=== PATIENT | female | born 1940 | race Caucasian/White ===

== ENCOUNTER 2019-08-17 06:45 | Observation (INO) | payer MEDICARE ==
[~2019-08-17] VITALS: Ht 162.6 cm; Wt 65.0 kg
[~2019-08-17 06:45] MED LIST: LEVO25TA4 PO; MONT10TA21 PO; OLME40TA8 PO
[2019-08-17 12:30] VITALS: BP 146/60
[2019-08-17 12:50] LABS: BASOPHILS % (AUTO) 0.9 % (0.0-5.0); EOSINOPHILS % (AUTO) 2.9 % (0.0-8.0); HEMATOCRIT 39.3 % (36-48); LYMPHOCYTES % (AUTO) 27.2 % (21.0-51.0); MEAN CORPUSCULAR HEMOGLOBIN 31.9 pg (27.0-33.0); MEAN CORPUSCULAR HGB CONC 32.9 g/dL (32.0-36.0); MEAN CORPUSCULAR VOLUME 96.9 fL (79-99); MONOCYTES % (AUTO) 7.4 % (3.0-13.0); NEUTROPHILS % (AUTO) 61.6 % (40.0-77.0); PLATELET COUNT (AUTO) 246 K/uL (130-400); RED BLOOD CELL COUNT(AUTO) 4.06 MIL/uL (4.00-5.50); RED CELL DISTRIBUTION WIDTH 14.4 % (11.0-15.5); WHITE BLOOD COUNT (AUTO) 7.6 K/uL (4.8-10.8)
[2019-08-17 13:10] LABS: CREATININE 0.8 mg/dL (0.5-1.5); POTASSIUM 3.9 mmol/L (3.5-5.1)
[2019-08-17] MEDS ORDERED: IBUP-1673 PO (15:37)
[2019-08-17] MEDS ORDERED: AMLO10TA4 PO (15:37)
[2019-08-17] MEDS ORDERED: LACT10SO PO (15:37)
[2019-08-17] MEDS ORDERED: VIT1CAPS47 PO (15:37)
[2019-08-17] MEDS ORDERED: PROVENTIL IH (15:37)
[2019-08-17] MEDS ORDERED: GABA600T10 PO (15:37)
[2019-08-17] MEDS ORDERED: ESCI10TA54 PO (15:37)
[2019-08-17] MEDS ORDERED: HYDROCODONE/ACET PO (15:37)
[2019-08-20] VITALS (27 sets, daily range): BP systolic 95–137; BP diastolic 40–90
[2019-08-20] MEDS: CEFAZOLIN SODIUM 1 GM VIAL IVP SCH ×2 (06:00→07:40)
[2019-08-20] MEDS ORDERED: LACTATED RINGERS 1000ML 1,000 ML IV ONE (06:11)
[2019-08-20] MEDS ORDERED: BUPIVACAINE/EPI/PF 0.25% 30ML VIAL IJ ONE (06:47)
[2019-08-20] MEDS ORDERED: BACITRACIN 50,000 UNIT VIAL ONE (06:49)
[2019-08-20] MEDS ORDERED: THROMBIN-JMI 5000 UNIT/VIAL TP ONE (06:49)
[2019-08-20] MEDS ORDERED: DURAMORPH PF1 MG/ML 10ML AMP IV ONE (06:50)
[2019-08-20] MEDS ORDERED: PROPOFOL 10 MG/ML 20ML VIAL IV ONE (07:12)
[2019-08-20] MEDS ORDERED: DEXAMETHASONE SOD PHOSPHATE 10MG/ML 1ML VIAL ONE (07:12)
[2019-08-20] MEDS ORDERED: LIDOCAINE PF 2% 5ML ABBOJECT ONE (07:12)
[2019-08-20] MEDS ORDERED: GLYCOPYRROLATE 1 MG/5 ML SYRINGE ONE (07:12)
[2019-08-20] MEDS ORDERED: ROCURONIUM 10MG/1ML SYR 10 MG/ML ML ONE (07:13)
[2019-08-20] MEDS ORDERED: NEOSTIGMINE 5MG/5ML SYR IV ONE (07:13)
[2019-08-20] MEDS ORDERED: FENTANYL CITRATE PF 50 MCG/1 ML 2ML VIAL ONE ×2 (07:13→08:35)
[2019-08-20] MEDS ORDERED: MIDAZOLAM HCL 1 MG/ML 2ML VIAL ONE (07:13)
[2019-08-20] MEDS ORDERED: ARTIFICIAL TEARS 3.5 GM OINTMENT ONE (07:14)
[2019-08-20] MEDS ORDERED: ONDANSETRON HCL 4 MG/2 ML VIAL ONE (10:25)
[2019-08-20] MEDS ORDERED: ESMOLOL HCL 10 MG/ML 10 ML VIAL ONE (10:51)
[2019-08-20] MEDS: LACTATED RINGERS 1000ML 1,000 ML IV SCH (10:56)
[2019-08-20] MEDS ORDERED: IBUPROFEN 200 MG TAB PO PRN (11:00)
[2019-08-20] MEDS ORDERED: MORPHINE SULFATE 2 MG/ML 1ML SYG IVP PRN (11:00)
[2019-08-20] MEDS ORDERED: PROVENTIL IH PRN (11:00)
[2019-08-20] MEDS ORDERED: PROMETHAZINE HCL 25 MG/ML 1ML AMPULE IM PRN (11:00)
[2019-08-20] MEDS: DEXAMETHASONE SOD PHOSPHATE 4 MG/ML 1ML VIAL IVP SCH ×2 (11:00→18:37)
[2019-08-20] MEDS ORDERED: SODIUM CHLORIDE 0.9% 10 ML VIAL IVP PRN (11:00)
[2019-08-20] MEDS ORDERED: NON-FORMULARY MEDICATION 1 EACH (Lactulose 30 ML) PO PRN (11:00)
[2019-08-20] MEDS ORDERED: MEPERIDINE-PF 25 MG/ML SYG ONE (11:11)
[2019-08-20] MEDS ORDERED: MORPHINE SULFATE 4 MG/1ML SYG ONE (11:30)
[2019-08-20] MEDS ORDERED: PHARMACY COMMUNICATION MISC SCH (14:00)
--- NOTE | 2019-08-20 14:45 | NUR ---
1424 had pt sign [facility] Letter.Faxed to [phone] and placed in chart under consent tab
[2019-08-20] MEDS: HYDROCODONE/ACETAMINOPHEN 5/325 MG TAB PO PRN ×2 (15:39→21:09)
[2019-08-20] MEDS ORDERED: CEFAZOLIN SODIUM 1 GM VIAL IVP SCH (16:00)
[2019-08-20] MEDS ORDERED: AMLODIPINE BESYLATE 5 MG TAB PO SCH (21:00)
[2019-08-20] MEDS: MULTIVITAMIN WITH MINERALS TABLET PO SCH (21:02)
[2019-08-20] MEDS: GABAPENTIN 300 MG CAPSULE PO SCH (21:02)
[2019-08-21] MEDS: DEXAMETHASONE SOD PHOSPHATE 4 MG/ML 1ML VIAL IVP SCH ×2 (00:13→05:28)
[2019-08-21] MEDS: LACTATED RINGERS 1000ML 1,000 ML IV SCH ×2 (00:16→05:29)
[2019-08-21 04:00] VITALS: BP 116/53
[2019-08-21] MEDS: HYDROCODONE/ACETAMINOPHEN 5/325 MG TAB PO PRN ×2 (05:29→11:27)
[2019-08-21] MEDS ORDERED: LEVOTHYROXINE 25 MCG TABLET PO SCH (06:30)
[2019-08-21 08:00] VITALS: BP 104/53
--- NOTE | 2019-08-21 08:00 | NUR ---
CM NOTES PT HERE FOR A SCHEDULE OPP; NO TRIGGERS TO CM, NO CONCNERNS VOICE, DETAILED CM ASSESSMENT DEFERRED AT THIS TIME Addendum: 08/21/19 at 1821 by VIVIAN SANCHEZ RN CM Amended: Links added.
[2019-08-21] MEDS ORDERED: LOSARTAN 100 MG TABLET PO SCH (09:00)
[2019-08-21] MEDS ORDERED: CITALOPRAM 20 MG TABLET PO SCH (09:00)
[2019-08-21] MEDS ORDERED: MONTELUKAST SODIUM 10 MG TAB PO SCH (09:00)
[2019-08-21] MEDS: MULTIVITAMIN WITH MINERALS TABLET PO SCH (09:53)
[2019-08-21] MEDS: GABAPENTIN 300 MG CAPSULE PO SCH (09:56)
--- NOTE | 2019-08-21 11:00 | NUR ---
pt and daughter stated understanding of all dc instructions in reagards to laminectomy after care, wound care, pain management, activity and signs and symptoms or concerns to report to md; dressing changed to lower back, and gabriel drain removed; pt has a well approx. inc. line with vance in place, no redness or drainage noted, no edema; pt josh. dressing change well and daughter at bedside was taught how to change dressings at home. pt plans to eat lunch then daughter will drive her home. haley told them to call when they are ready.
== END 2019-08-21 12:08 | disposition home or self-care (01) ==
LOC: EDSTATUS 12:00 → DAHIP 08-20 05:58 → 4BH 08-20 10:45
PROVIDERS: ADMIT Neurological Surgery; ATTEND Neurological Surgery
DX: M48.07 Spinal stenosis, lumbosacral region (principal); I10 Essential (primary) hypertension; E03.9 Hypothyroidism, unspecified; J45.909 Unspecified asthma, uncomplicated; Z90.710 Acquired absence of both cervix and uterus; Z90.49 Acquired absence of other specified parts of digestive tract; Z98.49 Cataract extraction status, unspecified eye; Z79.899 Other long term (current) drug therapy
CPT/HCPCS: 36415; 63047; 63048 ×2; 72020; 80048; 85025; 96374; 96375; 96376; A4215; A4221; A4222; A4223; A4344; A4510; A4600; A4649 ×4; A4663; G0378 ×26; J0690 ×2; J1100 ×4; J2001; J2175; J2250; J2270; J2274; J2405; J2704; J2710; J3010 ×2; J3490 ×4; J7120 ×3

== ENCOUNTER → 2021-03-17 | Outpatient (CLI) | payer MEDICARE ==
[~2021-03-17] MED LIST changes: +AMLO10TA4 PO; +ESCI-8 PO; +GABA600T10 PO; +HYDROCODONE/ACET PO; +IBUP-1673 PO; +LACT10SO5 PO; +PROVENTIL IH; +VIT1CAPS47 PO
== END | disposition home or self-care (01) ==
LOC: SHCH 09:01
PROVIDERS: ATTEND Internal Medicine Cardiovascular Disease
DX: R01.1 Cardiac murmur, unspecified (principal)
CPT/HCPCS: 93306; 93356

== ENCOUNTER 2024-08-24 15:52 | Inpatient (IN) | payer MEDICARE ==
[~2024-08-24] VITALS: Ht 160 cm; Wt 58.1 kg
[~2024-08-24 15:52] MED LIST changes: +GABA-1405 PO; -GABA600T10 PO; +LACT-441 PO; -LACT10SO5 PO; +MONT-47 PO; -MONT10TA21 PO; +OLME40TA70 PO; -OLME40TA8 PO
[2024-08-24] MEDS: morPHINE 2 MG SYG IM ONE (18:38)
--- NOTE | 2024-08-24 18:43 | HMCIMG ---
HIP UNILAT 4VW LEFT REASON: Pain. COMPARISON: None TECHNIQUE: 3 images of left hip were obtained. FINDINGS: Bilateral hip joint space narrowing is seen. Fecal material is seen in the colon. There is no acute displaced fracture or dislocation. IMPRESSION: Findings as described above.
--- NOTE | 2024-08-24 18:44 | HMCIMG ---
SHOULDER COMP 2+VWS LT HISTORY: Pain COMPARISON: None TECHNIQUE: 2 images of left shoulder were obtained. FINDINGS: Glenohumeral joint space narrowing and acromioclavicular joint space narrowing are seen. There is no acute displaced fracture or dislocation. Degenerative changes are seen. IMPRESSION: 1. Findings as described above.
--- NOTE | 2024-08-24 18:46 | HMCIMG ---
ELBOW COMP 3+VWS LT HISTORY: Pain COMPARISON: None TECHNIQUE: 3 images of left elbow were obtained. FINDINGS: There is fracture displacement involving the olecranon process of the proximal ulna. Soft tissue swelling is seen. The study is limited due to poor positioning. Subtle dislocation cannot be completely excluded. Degenerative changes are seen. IMPRESSION: 1. Findings as described above.
--- NOTE | 2024-08-24 18:49 | HMCIMG ---
FOREARM 2VWS LT HISTORY: Pain COMPARISON: None TECHNIQUE: 2 images of left forearm were obtained. FINDINGS: Avulsion fracture is seen of the olecranon process with displacement. Soft tissue swelling is seen. No definite dislocation is seen. Degenerative changes are seen. IMPRESSION: 1. Findings as described above.
--- NOTE | 2024-08-24 18:56 | HMCIMG ---
CT HEAD/BRAIN W/O CONTRAST HISTORY: Status post fall COMPARISON: None TECHNIQUE: Multiple sequential axial images of the head were obtained from the base of the skull through vertex. Patient was not given contrast through intravenous route. FINDINGS: The ventricles and extraventricular CSF spaces are dilated consistent with cerebral atrophy. Nonspecific white matter changes seen. There is no midline shift, mass effect or herniation. No acute intracranial bleed is seen. There is pansinusitis. IMPRESSION: 1. No acute intracranial bleed is seen. 2. Atrophy with white matter changes. Pansinusitis. CT was performed with one or more following dose reduction techniques: automated exposure control, adjustment of the mA and kv according to patient's size, or use of a iterative reconstruction technique.
[2024-08-24] MEDS: morPHINE 2 MG SYG IVP ONE (19:40)
[2024-08-24 19:42] LABS: BASOPHILS # (AUTO) 0.07 K/uL (0.00-0.20); BASOPHILS % (AUTO) 0.5 % (0.0-5.0); EOSINOPHILS # (AUTO) 0.05 K/uL (0.00-0.70); EOSINOPHILS % (AUTO) 0.3 % (0.0-8.0); HEMATOCRIT 40.7 % (36-48); IMMATURE GRANULOCYTE ABSOLUTE 0.08 K/uL (0-1); LYMPHOCYTES # (AUTO) 1.6 K/uL (1.0-4.8); LYMPHOCYTES % (AUTO) 10.5 % (21.0-51.0); MEAN CORPUSCULAR HEMOGLOBIN 30.7 pg (27.0-33.0); MEAN CORPUSCULAR HGB CONC 32.7 g/dL (32.0-36.0); MONOCYTES # (AUTO) 0.7 K/uL (0.1-1.0); MONOCYTES % (AUTO) 4.8 % (3.0-13.0); NEUTROPHILS # (AUTO) 12.3 K/uL (1.8-7.7); NEUTROPHILS % (AUTO) 83.4 % (40.0-77.0); PLATELET COUNT (AUTO) 237 K/uL (130-400); RED BLOOD CELL COUNT(AUTO) 4.33 MIL/uL (4.00-5.50); RED CELL DISTRIBUTION WIDTH 13.8 % (11.0-15.5); WHITE BLOOD COUNT (AUTO) 14.8 K/uL (4.8-10.8)
[2024-08-24 19:59] LABS: CREATININE 1.1 mg/dL (0.5-1.0); POTASSIUM 3.4 mmol/L (3.5-5.1)
--- NOTE | 2024-08-24 20:03 | ERN ---
General Chief Complaint: Mechanical Fall Stated Complaint: LEFT SHOULDER, ELBOW, HIP, S/P FALL Time Seen by MD: 16:55 Time Seen by Midlevel: 16:55 Source: patient, family History of Present Illness Initial Comments 83 y/o female who presents to the ED with daughter after a fall. She reports she slipped and fell hitting her left side, and reports to hit the back of her head. Denies any LOC, denies any vomiting, abnormal behavioral, and denies taking blood thinners. The patient complaining of left shoulder, elbow, left hip pain. PMHx asthma, DM, hypercholesterolemia Allergies: Coded Allergies: iodine (Unverified Allergy, Unknown, 05/13/17) Home Meds Reported Medications [Hydrocodone/Acet] No Conflict Check, PO Q6HPRN PRN for PAIN 08/17/19 Ibuprofen (Motrin Ib) 200 Mg Tablet, 2 TAB PO Q6HPRN PRN for PAIN, TAB 08/17/19 [Proventil] No Conflict Check, 1 PUFF IH AD PRN for ASTHMA 08/17/19 Escitalopram Oxalate (Escitalopram Oxalate) 10 Mg Tablet, 10 MG PO AM, TAB 08/17/19 Vit C/E/Zn/Coppr/Lutein/Zeaxan (Preservision Areds 2 Softgel) 1 Each Capsule, 1 EACH PO BID, CAP 08/17/19 Gabapentin (Gabapentin) 600 Mg Tablet, 600 MG PO BID, TAB 08/17/19 Amlodipine Besylate (Norvasc) 10 Mg Tablet, 10 MG PO HS, TAB 08/17/19 Lactulose (Lactulose) 10 Gm/15 Ml Solution, 30 ML PO AD PRN for CONSTIPATION, ML 08/17/19 Montelukast Sodium (Singulair) 10 Mg Tablet, 10 MG PO DAILY, TAB 05/13/17 Levothyroxine Sodium (Synthroid) 25 Mcg Tablet, 25 MCG PO DAILY, TAB 05/13/17 Olmesartan Medoxomil (Benicar) 40 Mg Tablet, 40 MG PO DAILY, TAB 05/13/17 Past Medical History Past Medical History: Asthma, Diabetes-Type II, High Cholesterol, Heart Disease Past Surgical History: Hysterectomy, Cholecystectomy Surgical History Other: BACK, BLADDER LIFT ROS Dictation Constitutional: Negative for fever,chills, and weight loss Eyes: Negative for injury, pain,redness, and discharge ENT: Negative for injury,pain or swelling Head: Positive for hematoma Cardiovascular: Negative for chest pain, palpitations, and edema Respiratory: Negative for shortness of breath, cough, and wheezing, Abdomen/GI: Negative for abdominal pain, nausea, vomiting, diarrhea, and constipation Back: Negative for injury and pain : Negative for painful urination, bleeding or discharge MS/Extremity: Positive for left shoulder, left elbow, left hip pain Negative for injury and deformity Skin: Negative for rash, and discoloration Neuro: Negative for headache, weakness, numbness, tingling, and seizure Psych: Negative for suicide ideation, homicidal ideation, and hallucinations Physical Exam Physical Exam Dictation General: awake, alert, no acute distress Head/Face: Normocephalic, atraumatic Eyes: PERRL, EOMI, normal conjunctiva ENT: oral mucosa moist Neck: Normal range of motion Cardiovascular: RRR, normal S1/S2 Respiratory: CTAB, no respiratory distress, no rales or wheezes Skin: Warm, dry, normal turgor, no rash MS/Extremity: Pulses equal, no cyanosis, neurovascular intact, range of motion restricted by pain to the left elbow and shoulder, severe tenderness to the left elbow, hematoma noted to the left elbow Neuro: COAx4, GCS 15, no neurological deficits, cranial nerves 2-12 intact Psych: Normal behavior, mood, and affect normal Results Laboratory and Microbiology Lab and Micro Result Laboratory Tests Test 08/24/24 19:33 White Blood Count 14.8 K/uL (4.8-10.8) H Red Blood Count 4.33 MIL/uL (4.00-5.50) Hemoglobin 13.3 g/dL (12.0-16.0) Hematocrit 40.7 % (36-48) Mean Corpuscular Volume 94.0 fL (79-99) Mean Corpuscular Hemoglobin 30.7 pg (27.0-33.0) Mean Corpuscular Hemoglobin Concent 32.7 g/dL (32.0-36.0) Red Cell Distribution Width 13.8 % (11.0-15.5) Platelet Count 237 K/uL (130-400) Mean Platelet Volume 10.3 fL (7.5-10.5) Immature Granulocyte % (Auto) 0.5 % (0-1) Neutrophils (%) (Auto) 83.4 % (40.0-77.0) H Lymphocytes (%) (Auto) 10.5 % (21.0-51.0) L Monocytes (%) (Auto) 4.8 % (3.0-13.0) Eosinophils (%) (Auto) 0.3 % (0.0-8.0) Basophils (%) (Auto) 0.5 % (0.0-5.0) Neutrophils # (Auto) 12.3 K/uL (1.8-7.7) H Lymphocytes # (Auto) 1.6 K/uL (1.0-4.8) Monocytes # (Auto) 0.7 K/uL (0.1-1.0) Eosinophils # (Auto) 0.05 K/uL (0.00-0.70) Basophils # (Auto) 0.07 K/uL (0.00-0.20) Absolute Immature Granulocyte (auto 0.08 K/uL (0-1) Nucleated Red Blood Cells 0.0 % (0.0-0.19) Labs Reviewed?: Yes EKG/XRAY/US/CT/MRI X-RAY Comment REASON: Pain ORDERING PHYSICIAN: EDWIN COSME PROCEDURE: ELB3VW LT - ELBOW COMP 3+VWS LT ELBOW COMP 3+VWS LT HISTORY: Pain COMPARISON: None TECHNIQUE: 3 images of left elbow were obtained. FINDINGS: There is fracture displacement involving the olecranon process of the proximal ulna. Soft tissue swelling is seen. The study is limited due to poor positioning. Subtle dislocation cannot be completely excluded. Degenerative changes are seen. IMPRESSION: 1. Findings as described above. REASON: Pain ORDERING PHYSICIAN: EDWIN COSME PROCEDURE: FORARML - FOREARM 2VWS LT FOREARM 2VWS LT HISTORY: Pain COMPARISON: None TECHNIQUE: 2 images of left forearm were obtained. FINDINGS: Avulsion fracture is seen of the olecranon process with displacement. Soft tissue swelling is seen. No definite dislocation is seen. Degenerative changes are seen. IMPRESSION: 1. Findings as described above. REASON: Pain ORDERING PHYSICIAN: EDWIN COSME PROCEDURE: HIP U 4V L - HIP UNILAT 4VW LEFT HIP UNILAT 4VW LEFT REASON: Pain. COMPARISON: None TECHNIQUE: 3 images of left hip were obtained. FINDINGS: Bilateral hip joint space narrowing is seen. Fecal material is seen in the colon. There is no acute displaced fracture or dislocation. IMPRESSION: Findings as described above. REASON: Pain ORDERING PHYSICIAN: EDWIN COSME PROCEDURE: SHOL 2V LT - SHOULDER COMP 2+VWS LT SHOULDER COMP 2+VWS LT HISTORY: Pain COMPARISON: None TECHNIQUE: 2 images of left shoulder were obtained. FINDINGS: Glenohumeral joint space narrowing and acromioclavicular joint space narrowing are seen. There is no acute displaced fracture or dislocation. Degenerative changes are seen. IMPRESSION: 1. Findings as described above. CT Scan Comment REASON: Fall, head injury ORDERING PHYSICIAN: EDWIN COSME PROCEDURE: HEAD WO - CT HEAD/BRAIN W/O CONTRAST CT HEAD/BRAIN W/O CONTRAST HISTORY: Status post fall COMPARISON: None TECHNIQUE: Multiple sequential axial images of the head were obtained from the base of the skull through vertex. Patient was not given contrast through intravenous route. FINDINGS: The ventricles and extraventricular CSF spaces are dilated consistent with cerebral atrophy. Nonspecific white matter changes seen. There is no midline shift, mass effect or herniation. No acute intracranial bleed is seen. There is pansinusitis. IMPRESSION: 1. No acute intracranial bleed is seen. 2. Atrophy with white matter changes. Pansinusitis. CT was performed with one or more following dose reduction techniques: automated exposure control, adjustment of the mA and kv according to patient's size, or use of a iterative reconstruction technique. MDM MDM: Differential diagnosis: Fracture, dislocation, head injury, sprain, strain, contusion Rationale: 83 y/o female who presents to the ED with daughter after a fall. She reports she slipped and fell hitting her left side, and reports to hit the back of her head. Denies any LOC, denies any vomiting, abnormal behavioral, and denies taking blood thinners. The patient complaining of left shoulder, elbow, left hip pain. PMHx asthma, DM, hypercholesterolemia Left elbow x-rays indicate avulsion fracture involving the olecranon process with displacement of the proximal ulna, soft tissue swelling noted, degenerative changes noted. Pelvic x-rays indicate bilateral hip joint placed narrowing no acute displaced fractures or dislocations. Shoulder x-rays indicate narrowing of the acromioclavicular joint space, degenerative changes, no acute displaced fractures or dislocations. Head CT indicates no acute intracranial bleeds, atrophy with white matter changes. Morphine administered in the ED. Dr. Gu orthopedic consulted who recommended admission and keeping the patient NPO, initiate IV fluids and he will evaluate patient in the morning and scheduled for surgery. Patient and daughter were educated on findings, diagnosis, and decision for admission. Daughter verbalized understanding and agreed with admission. Previous outside records reviewed: Old ER visits. Risk of complication and/or morbidity or mortality of patient management: None Medications-Per medication reconciliation Need for hospitalization: Patient does meet criteria for hospitalization. Need for emergency major/minor surgery: No There are no social concerns with this patient. Prescription drug management Prescriptions will include symptomatic care Patient's prior external medical records from other ER visits were reviewed by me as indicated. Prior testing and results from previous visits were reviewed. Prior tests were taken into account with medical decision making and resource utilization, independent historian/historians were used to obtain complete medical history. I independently interpreted the test that were performed, results were reviewed by me and considered findings on radiology if ordered. Medical management and examination interpretation discussions were had by me with other qualified healthcare professionals as indicated for the patient's care. ED Course Orders Procedure Category Date Status Time Shoulder Comp 2+Vws Lt RAD 08/24/24 Resulted 16:56 Hip Unilat 4vw Left RAD 08/24/24 Resulted 16:56 Elbow Comp 3+Vws Lt RAD 08/24/24 Resulted 16:56 Forearm 2vws Lt RAD 08/24/24 Resulted 16:56 Ct Head/Brain W/O CT 08/24/24 Resulted Contrast 17:41 Morphine 2mg Syg PHA 08/24/24 Complete (Morphine 2mg Syg) 18:00 Cbc With Differential LAB 08/24/24 Complete 19:03 Basic Metabolic Panel LAB 08/24/24 In Process 19:03 Pt And Ptt LAB 08/24/24 In Process 19:03 Urinalysis LAB 08/24/24 Logged W/Microscopic 19:03 Morphine 2mg Syg PHA 08/24/24 Complete (Morphine 2mg Syg) 19:30 Current Medications Medications (Trade) Dose Ordered Sig/Yecenia Route PRN Reason Start Time Stop Time Status Last Admin Dose Admin Morphine Sulfate (morPHINE 2MG SYG) 2 mg ONCE ONCE IM 08/24/24 18:00 08/24/24 18:01 DC 08/24/24 18:38 Morphine Sulfate (morPHINE 2MG SYG) 2 mg ONCE ONCE IVP 08/24/24 19:30 08/24/24 19:31 DC 08/24/24 19:40 Vital Signs Date Time Temp Pulse Resp B/P (MAP) Pulse Ox O2 Delivery O2 Flow Rate FiO2 08/24/24 18:51 98.4 88 16 121/52 96 Room Air* 0 21 08/24/24 15:55 98.4 88 16 121/52 96 Room Air 0 Critical Care Note Critical Time: 30 minutes Comments Critical Care Procedure Note Authorized and Performed by: me Total critical care time: Approximately 36 minutes Due to a high probability of clinically significant, life threatening deterioration, the patient required my highest level of preparedness to intervene emergently and I personally spent this critical care time directly and personally managing the patient. This critical care time included obtaining a history; examining the patient; pulse oximetry; ordering and review of studies; arranging urgent treatment with development of a management plan; evaluation of patient's response to treatment; frequent reassessment; and, discussions with other providers. This critical care time was performed to assess and manage the high probability of imminent, life-threatening deterioration that could result in multi-organ failure. It was exclusive of separately billable procedures and treating other patients and teaching time. Please see MDM section and the rest of the note for further information on patient assessment and treatment. DX & DISP Disposition: Inpatient Decision to Admit Date: Aug 24, 2024 Decision to Admit Time: 18:57 Departure Impression: Primary Impression: Olecranon fracture Condition: Stable Referrals: CHRIST MIRZA MD (PCP) I participated in the following activities of this patient's care: For this patient encounter, I reviewed the PA or TRIAL MANAGER documentation, treatment plan, and medical decision making. I did not have [id number] time with this patient. I will sign as the reviewing DrAislinn And agree with the treatment plan and disposition. EDWIN COSME Aug 24, 2024 20:03
[2024-08-24 20:09] LABS: INR 1.03 (0.85-1.15); PROTHROMBIN TIME 11.1 SEC (9.6-11.6)
[2024-08-24 20:10] LABS: PARTIAL THROMBOPLASTIN TIME 25.4 SEC (26.3-35.5)
[2024-08-24] MEDS: 1/2 NS 1000ML 1,000 ML IV SCH (20:48)
--- NOTE | 2024-08-24 21:30 | NUR ---
COMPLETE LIST OF HOME MEDICATIONS WITH DOSAGES NOT AVAILABLE AT THIS TIME. DAUGHTER INSTRUCTED TO BRING COMEPLETED LIST TOMORROW.
--- NOTE | 2024-08-24 21:55 | HP ---
HISTORY AND PHYSICAL NOTE DATE OF CONSULTATION: 08/24/24 ALLERGIES: Coded Allergies: iodine (Unverified Allergy, Unknown, 05/13/17) HOME MEDS: Reported Medications [Hydrocodone/Acet] No Conflict Check, PO Q6HPRN PRN for PAIN 08/17/19 Ibuprofen (Motrin Ib) 200 Mg Tablet, 2 TAB PO Q6HPRN PRN for PAIN, TAB 08/17/19 [Proventil] No Conflict Check, 1 PUFF IH AD PRN for ASTHMA 08/17/19 Escitalopram Oxalate (Escitalopram Oxalate) 10 Mg Tablet, 10 MG PO AM, TAB 08/17/19 Vit C/E/Zn/Coppr/Lutein/Zeaxan (Preservision Areds 2 Softgel) 1 Each Capsule, 1 EACH PO BID, CAP 08/17/19 Gabapentin (Gabapentin) 600 Mg Tablet, 600 MG PO BID, TAB 08/17/19 Amlodipine Besylate (Norvasc) 10 Mg Tablet, 10 MG PO HS, TAB 08/17/19 Lactulose (Lactulose) 10 Gm/15 Ml Solution, 30 ML PO AD PRN for CONSTIPATION, ML 08/17/19 Montelukast Sodium (Singulair) 10 Mg Tablet, 10 MG PO DAILY, TAB 05/13/17 Levothyroxine Sodium (Synthroid) 25 Mcg Tablet, 25 MCG PO DAILY, TAB 05/13/17 Olmesartan Medoxomil (Benicar) 40 Mg Tablet, 40 MG PO DAILY, TAB 05/13/17 INPATIENT MEDS: Current Medications Medications Dose Ordered Sig/Yecenia Start Time Stop Time Status Last Admin Sodium Chloride 1,000 ml @ 100 mls/hr Q10H 08/24/24 20:30 09/23/24 20:29 08/24/24 20:48 VITAL SIGNS Vital Signs Date Time Temp Pulse Resp B/P (MAP) Pulse Ox O2 Delivery O2 Flow Rate FiO2 08/24/24 21:03 97.9 93 18 136/57 97 Room Air* 0 08/24/24 20:00 97.9 95 18 121/63 96 Room Air* 0 08/24/24 19:00 97.7 18 118/61 95 Room Air* 0 08/24/24 18:51 98.4 88 16 121/52 96 Room Air* 0 08/24/24 15:55 98.4 88 16 121/52 96 Room Air 0 PHYSICAL EXAM 83 y/o female who presents to the ED with daughter after a fall. She reports she slipped and fell hitting her left side, and reports to hit the back of her head. Denies any LOC, denies any vomiting, abnormal behavioral, and denies taking blood thinners. The patient complaining of left shoulder, elbow, left hip pain. PMHx asthma, DM, hypercholesterolemia Allergies: Coded Allergies: iodine (Unverified Allergy, Unknown, 05/13/17) Home Meds Reported Medications [Hydrocodone/Acet] No Conflict Check, PO Q6HPRN PRN for PAIN 08/17/19 Ibuprofen (Motrin Ib) 200 Mg Tablet, 2 TAB PO Q6HPRN PRN for PAIN, TAB 08/17/19 [Proventil] No Conflict Check, 1 PUFF IH AD PRN for ASTHMA 08/17/19 Escitalopram Oxalate (Escitalopram Oxalate) 10 Mg Tablet, 10 MG PO AM, TAB 08/17/19 Vit C/E/Zn/Coppr/Lutein/Zeaxan (Preservision Areds 2 Softgel) 1 Each Capsule, 1 EACH PO BID, CAP 08/17/19 Gabapentin (Gabapentin) 600 Mg Tablet, 600 MG PO BID, TAB 08/17/19 Amlodipine Besylate (Norvasc) 10 Mg Tablet, 10 MG PO HS, TAB 08/17/19 Lactulose (Lactulose) 10 Gm/15 Ml Solution, 30 ML PO AD PRN for CONSTIPATION, ML 08/17/19 Montelukast Sodium (Singulair) 10 Mg Tablet, 10 MG PO DAILY, TAB 05/13/17 Levothyroxine Sodium (Synthroid) 25 Mcg Tablet, 25 MCG PO DAILY, TAB 05/13/17 Olmesartan Medoxomil (Benicar) 40 Mg Tablet, 40 MG PO DAILY, TAB 05/13/17 Past History Past Medical History Past Medical History: Asthma, Diabetes-Type II, High Cholesterol, Heart Disease Past Surgical History: Hysterectomy, Cholecystectomy Surgical History Other: BACK, BLADDER LIFT Review of Systems ROS Dictation Constitutional: Negative for fever,chills, and weight loss Eyes: Negative for injury, pain,redness, and discharge ENT: Negative for injury,pain or swelling Head: Positive for hematoma Cardiovascular: Negative for chest pain, palpitations, and edema Respiratory: Negative for shortness of breath, cough, and wheezing, Abdomen/GI: Negative for abdominal pain, nausea, vomiting, diarrhea, and constipation Back: Negative for injury and pain : Negative for painful urination, bleeding or discharge MS/Extremity: Positive for left shoulder, left elbow, left hip pain Negative for injury and deformity Skin: Negative for rash, and discoloration Neuro: Negative for headache, weakness, numbness, tingling, and seizure Physical Exam Physical Exam Physical Exam Dictation General: awake, alert, no acute distress Head/Face: Normocephalic, atraumatic Eyes: PERRL, EOMI, normal conjunctiva ENT: oral mucosa moist Neck: Normal range of motion Cardiovascular: RRR, normal S1/S2 Respiratory: CTAB, no respiratory distress, no rales or wheezes Skin: Warm, dry, normal turgor, no rash MS/Extremity: Pulses equal, no cyanosis, neurovascular intact, range of motion restricted by pain to the left elbow and shoulder, severe tenderness to the left elbow, hematoma noted to the left elbow Neuro: COAx4, GCS 15, no neurological deficits, cranial nerves 2-12 intact Psych: Normal behavior, mood, and affect normal LABORATORY RESULTS Laboratory Tests 08/24/24 19:33: White Blood Count 14.8, Red Blood Count 4.33, Hemoglobin 13.3, Hematocrit 40.7, Mean Corpuscular Volume 94.0, Mean Corpuscular Hemoglobin 30.7, Mean Corpuscular Hemoglobin Concent 32.7, Red Cell Distribution Width 13.8, Platelet Count 237, Mean Platelet Volume 10.3, Immature Granulocyte % (Auto) 0.5, Neutrophils (%) ( Auto) 83.4, Lymphocytes (%) (Auto) 10.5, Monocytes (%) (Auto) 4.8, Eosinophils (%) (Auto) 0.3, Basophils (%) (Auto) 0.5, Neutrophils # (Auto) 12.3, Lymphocytes # (Auto) 1.6, Monocytes # (Auto) 0.7, Eosinophils # (Auto) 0.05, Basophils # (Auto) 0.07, Absolute Immature Granulocyte (auto 0.08, Nucleated Red Blood Cells 0.0, Prothrombin Time 11.1, Prothromb Time International Ratio 1.03, Activated Partial Thromboplast Time 25.4, Sodium Level 143, Potassium Level 3.4, Chloride Level 104, Carbon Dioxide Level 25, Blood Urea Nitrogen 17, Creatinine 1.1, Glomerular Filtration Rate Calc 49, Random Glucose 114, Total Calcium 9.8 PROBLEM LIST: (1) Olecranon fracture ICD Codes: S52.023A - Displaced fracture of olecranon process without intraarticular extension of unspecified ulna, initialencounter for closed fracture PLAN Resume home medication and consult orthopedics and symptomatic pain treatment CHRIST MIRZA MD Aug 24, 2024 21:55
[2024-08-24] MEDS: hydroMORPHone 0.5 MG SYG (0.5MG/0.5ML) IVP ONE (22:41)
[2024-08-25] VITALS (34 sets, daily range): BP systolic 128–198; BP diastolic 55–97; PULSE 79–117; RESP 15–34; TEMP 97.6–98.5; O2SAT 93–98
--- NOTE | 2024-08-25 00:57 | NUR ---
REPORT GIVEN TO NURSE PEREZ, ALL QUESTIONS ANSWERED AT THIS TIME. NURSE EXPECTING PT ARRIVAL TO THE UNIT.
[2024-08-25 05:28] LABS: BASOPHILS # (AUTO) 0.04 K/uL (0.00-0.20); BASOPHILS % (AUTO) 0.5 % (0.0-5.0); EOSINOPHILS # (AUTO) 0.19 K/uL (0.00-0.70); EOSINOPHILS % (AUTO) 2.2 % (0.0-8.0); HEMATOCRIT 35.9 % (36-48); IMMATURE GRANULOCYTE ABSOLUTE 0.03 K/uL (0-1); MEAN CORPUSCULAR HEMOGLOBIN 30.2 pg (27.0-33.0); MEAN CORPUSCULAR HGB CONC 32.3 g/dL (32.0-36.0); MEAN CORPUSCULAR VOLUME 93.5 fL (79-99); MONOCYTES # (AUTO) 0.6 K/uL (0.1-1.0); MONOCYTES % (AUTO) 7.2 % (3.0-13.0); NEUTROPHILS # (AUTO) 5.8 K/uL (1.8-7.7); NEUTROPHILS % (AUTO) 66.8 % (40.0-77.0); PLATELET COUNT (AUTO) 212 K/uL (130-400); RED BLOOD CELL COUNT(AUTO) 3.84 MIL/uL (4.00-5.50); WHITE BLOOD COUNT (AUTO) 8.7 K/uL (4.8-10.8)
[2024-08-25] MEDS: hydroMORPHone 0.5 MG SYG (0.5MG/0.5ML) IVP PRN (05:59)
[2024-08-25 06:02] LABS: ALBUMIN 3.3 g/dL (3.5-5.0); BILIRUBIN,TOTAL 1.1 mg/dL (0.2-1.0); CREATININE 0.8 mg/dL (0.5-1.0); POTASSIUM 3.4 mmol/L (3.5-5.1)
--- NOTE | 2024-08-25 10:57 | EKG ---
[facility] Test Date: 2024-08-25 Test Time: 10:35:06 Pat Name: ABIEL MARROQUIN Department: [facility] Room: 413 1 Gender: F Package Handler: [id number] : 1940 Requested By: SIRI GABRIEL Order Number: [id number] Reading MD: Moy Franco Measurements Intervals [place] Rate: 82 P: 55 SC: 162 QRS: 64 QRSD: 96 T: 88 QT: 408 QTc: 478 Interpretive Statements Sinus rhythm Nonspecific T abnormalities, lateral leads No previous ECG available for comparison Electronically Signed On 08-25-2024 18:11:26 STRATEGIC MANAGER by Moy Franco Please click the below link to view image of tracing.
[2024-08-25] MEDS: ceFAZolin SODIUM 2 GM VIAL ONE (11:05)
[2024-08-25] MEDS ORDERED: LIDOCAINE PF 100MG/5ML (2%) SYRINGE 5ML ONE (11:13)
[2024-08-25] MEDS ORDERED: ondanSETRON 4MG INJ ONE (11:13)
[2024-08-25] MEDS ORDERED: rocuRONium bROMide 10MG/1ML 5ML VL ONE (11:14)
[2024-08-25] MEDS ORDERED: GLYCOPYRROLATE 0.2 MG/ML 5 ML VIAL ONE (11:14)
[2024-08-25] MEDS ORDERED: SUCCINYLCHOLINE CHLORIDE 20 MG/ML 10 ML VIAL ONE (11:14)
[2024-08-25] MEDS ORDERED: FENTanyl CITRate PF 50 MCG/1 ML 2ML VIAL ONE ×2 (11:14→14:10)
[2024-08-25] MEDS ORDERED: NEOSTIGMINE METHYLSULFATE 1MG/ML IV ONE (11:14)
[2024-08-25] MEDS ORDERED: dexaMETHasone SOD PHOSPHATE 10MG/ML 1ML VIAL ONE (11:14)
[2024-08-25] MEDS ORDERED: proPOFol 10 MG/ML 20ML VIAL IV ONE (11:14)
--- NOTE | 2024-08-25 11:14 | PN ---
PROGRESS NOTE PROGRESS NOTE DATE OF PROGRESS NOTE: 08/25/24 SUBJECTIVE: No new complaints VITAL SIGNS Vital Signs Date Time Temp Pulse Resp B/P (MAP) Pulse Ox O2 Delivery O2 Flow Rate FiO2 08/25/24 08:13 98.4 102 16 139/55 93 Nasal Cannula 2.0 08/25/24 04:38 21 PHYSICAL EXAM: 83 y/o female who presents to the ED with daughter after a fall. She reports she slipped and fell hitting her left side, and reports to hit the back of her head. Denies any LOC, denies any vomiting, abnormal behavioral, and denies fallon ing blood thinners. The patient complaining of left shoulder, elbow, left hip pain. PMHx asthma, DM, hypercholesterolemia Allergies: Coded Allergies: iodine (Unverified Allergy, Unknown, 05/13/17) Home Meds Reported Medications [Hydrocodone/Acet] No Conflict Check, PO Q6HPRN PRN for PAIN 08/17/19 Ibuprofen (Motrin Ib) 200 Mg Tablet, 2 TAB PO Q6HPRN PRN for PAIN, TAB 08/17/19 [Proventil] No Conflict Check, 1 PUFF IH AD PRN for ASTHMA 08/17/19 Escitalopram Oxalate (Escitalopram Oxalate) 10 Mg Tablet, 10 MG PO AM, TAB 08/17/19 Vit C/E/Zn/Coppr/Lutein/Zeaxan (Preservision Areds 2 Softgel) 1 Each Capsule, 1 EACH PO BID, CAP 08/17/19 Gabapentin (Gabapentin) 600 Mg Tablet, 600 MG PO BID, TAB 08/17/19 Amlodipine Besylate (Norvasc) 10 Mg Tablet, 10 MG PO HS, TAB 08/17/19 Lactulose (Lactulose) 10 Gm/15 Ml Solution, 30 ML PO AD PRN for CONSTIPATION, ML 08/17/19 Montelukast Sodium (Singulair) 10 Mg Tablet, 10 MG PO DAILY, TAB 05/13/17 Levothyroxine Sodium (Synthroid) 25 Mcg Tablet, 25 MCG PO DAILY, TAB 05/13/17 Olmesartan Medoxomil (Benicar) 40 Mg Tablet, 40 MG PO DAILY, TAB 05/13/17 Past History Past Medical History Past Medical History: Asthma, Diabetes-Type II, High Cholesterol, Heart Disease Past Surgical History: Hysterectomy, Cholecystectomy Surgical History Other: BACK, BLADDER LIFT Review of Systems ROS Dictation Constitutional: Negative for fever,chills, and weight loss Eyes: Negative for injury, pain,redness, and discharge ENT: Negative for injury,pain or swelling Head: Positive for hematoma Cardiovascular: Negative for chest pain, palpitations, and edema Respiratory: Negative for shortness of breath, cough, and wheezing, Abdomen/GI: Negative for abdominal pain, nausea, vomiting, diarrhea, and constipation Back: Negative for injury and pain : Negative for painful urination, bleeding or discharge MS/Extremity: Positive for left shoulder, left elbow, left hip pain Negative for injury and deformity Skin: Negative for rash, and discoloration Neuro: Negative for headache, weakness, numbness, tingling, and seizure Physical Exam Physical Exam Physical Exam Dictation General: awake, alert, no acute distress Head/Face: Normocephalic, atraumatic Eyes: PERRL, EOMI, normal conjunctiva ENT: oral mucosa moist Neck: Normal range of motion Cardiovascular: RRR, normal S1/S2 Respiratory: CTAB, no respiratory distress, no rales or wheezes Skin: Warm, dry, normal turgor, no rash MS/Extremity: Pulses equal, no cyanosis, neurovascular intact, range of motion restricted by pain to the left elbow and shoulder, severe tenderness to the left elbow, hematoma noted to the left elbow Neuro: COAx4, GCS 15, no neurological deficits, cranial nerves 2-12 intact Psych: Normal behavior, mood, and affect normal LABORATORY: Laboratory Result(s) Test 08/24/24 19:33 08/25/24 04:51 08/25/24 10:53 White Blood Count 14.8 K/uL (4.8-10.8) 8.7 K/uL (4.8-10.8) Red Blood Count 4.33 MIL/uL (4.00-5.50) 3.84 MIL/uL (4.00-5.50) Hemoglobin 13.3 g/dL (12.0-16.0) 11.6 g/dL (12.0-16.0) Hematocrit 40.7 % (36-48) 35.9 % (36-48) Mean Corpuscular Volume 94.0 fL (79-99) 93.5 fL (79-99) Mean Corpuscular Hemoglobin 30.7 pg (27.0-33.0) 30.2 pg (27.0-33.0) Mean Corpuscular Hemoglobin Concent 32.7 g/dL (32.0-36.0) 32.3 g/dL (32.0-36.0) Red Cell Distribution Width 13.8 % (11.0-15.5) 14.0 % (11.0-15.5) Platelet Count 237 K/uL (130-400) 212 K/uL (130-400) Mean Platelet Volume 10.3 fL (7.5-10.5) 10.7 fL (7.5-10.5) Immature Granulocyte % (Auto) 0.5 % (0-1) 0.3 % (0-1) Neutrophils (%) (Auto) 83.4 % (40.0-77.0) 66.8 % (40.0-77.0) Lymphocytes (%) (Auto) 10.5 % (21.0-51.0) 23.0 % (21.0-51.0) Monocytes (%) (Auto) 4.8 % (3.0-13.0) 7.2 % (3.0-13.0) Eosinophils (%) (Auto) 0.3 % (0.0-8.0) 2.2 % (0.0-8.0) Basophils (%) (Auto) 0.5 % (0.0-5.0) 0.5 % (0.0-5.0) Neutrophils # (Auto) 12.3 K/uL (1.8-7.7) 5.8 K/uL (1.8-7.7) Lymphocytes # (Auto) 1.6 K/uL (1.0-4.8) 2.0 K/uL (1.0-4.8) Monocytes # (Auto) 0.7 K/uL (0.1-1.0) 0.6 K/uL (0.1-1.0) Eosinophils # (Auto) 0.05 K/uL (0.00-0.70) 0.19 K/uL (0.00-0.70) Basophils # (Auto) 0.07 K/uL (0.00-0.20) 0.04 K/uL (0.00-0.20) Absolute Immature Granulocyte (auto 0.08 K/uL (0-1) 0.03 K/uL (0-1) Nucleated Red Blood Cells 0.0 % (0.0-0.19) 0.0 % (0.0-0.19) Prothrombin Time 11.1 SEC (9.6-11.6) Prothromb Time International Ratio 1.03 (0.85-1.15) Activated Partial Thromboplast Time 25.4 SEC (26.3-35.5) Sodium Level 143 mmol/L (136-145) 139 mmol/L (136-145) Potassium Level 3.4 mmol/L (3.5-5.1) 3.4 mmol/L (3.5-5.1) Chloride Level 104 mmol/L (101-111) 105 mmol/L (101-111) Carbon Dioxide Level 25 mmol/L (21-32) 25 mmol/L (21-32) Blood Urea Nitrogen 17 mg/dL (7-18) 17 mg/dL (7-18) Creatinine 1.1 mg/dL (0.5-1.0) 0.8 mg/dL (0.5-1.0) Glomerular Filtration Rate Calc 49 mL/min (>90) 72 mL/min (>90) Random Glucose 114 mg/dL (70-105) 116 mg/dL (70-105) Total Calcium 9.8 mg/dL (8.5-10.1) 8.9 mg/dL (8.5-10.1) Total Bilirubin 1.1 mg/dL (0.2-1.0) Aspartate Amino Transf (AST/SGOT) 18 U/L (10-37) Alanine Aminotransferase (ALT/SGPT) 20 U/L (12-78) Alkaline Phosphatase 96 U/L (50-136) Total Protein 7.0 g/dL (6.0-8.3) Albumin 3.3 g/dL (3.5-5.0) Whole Blood Glucose 102 MG/DL (70-110) INPATIENT MEDS: Current Medications Medications Dose Ordered Sig/Yecenia Start Time Stop Time Status Last Admin Sodium Chloride 1,000 ml @ 100 mls/hr Q10H 08/24/24 20:30 09/23/24 20:29 08/24/24 20:48 Hydromorphone HCl 0.5 mg Q3H3 PRN 08/25/24 06:00 08/30/24 05:59 08/25/24 10:07 Cefazolin Sodium 2 gm ONCALL ONCE 08/25/24 13:00 08/25/24 13:01 PROBLEM LIST: (1) Olecranon fracture ICD Code: S52.023A - Displaced fracture of olecranon process without intraarticular extension of unspecified ulna, initialencounter for closed fracture PLAN: Resume home medication and consult orthopedics and symptomatic pain treatment Medically cleared for surgery no contraindications CHRIST MIRZA MD Aug 25, 2024 11:14
[2024-08-25] MEDS ORDERED: MIDAZOLAM HCL 1 MG/ML 2ML VIAL ONE (11:15)
[2024-08-25] MEDS ORDERED: ROPivacaine 0.5% 5MG/ML 30ML ONE (11:17)
[2024-08-25] MEDS ORDERED: ALBUMIN (HUMAN) 5% 250 ML IV ONE (11:19)
[2024-08-25] MEDS ORDERED: ceFAZolin SODIUM 1 GM VIAL ONE (12:59)
[2024-08-25] MEDS: ceFAZolin SODIUM 2 GM VIAL IVPB ONE (13:30)
--- NOTE | 2024-08-25 13:54 | CONS ---
CONSULT NOTE: REQUESTING PHYSICIAN: Dr. Foster REASON FOR CONSULT: Left elbow fracture HISTORY OF PRESENT ILLNESS: Mrs. Chung is an 83-year-old female patient in the sustained in a fall the day of admission and was brought to the emergency room because of left elbow and left shoulder pain. The patient denied loss of consciousness, nausea and vomit, abnormal behavior. She is not taking blood thinners The patient was evaluated in the emergency room and she was found to have a displaced olecranon fracture. The patient was admitted and we were consulted for treatment. PAST MEDICAL HISTORY: Asthma, diabetes type 2, hypercholesterolemia, heart disease, left shoulder arthritis PAST SURGICAL HISTORY: Cholecystectomy, hysterectomy, back surgery, bladder lift ALLERGIES: Iodine SOCIAL HISTORY: The patient is retired denies use of tobacco or alcohol FAMILY HISTORY: REVIEW OF SYSTEMS: Negative except as above PHYSICAL EXAMINATION: The patient is lying supine in bed, she is in moderate distress secondary to shoulder and elbow pain. Her mental status is alert and oriented. Her respiratory rate is normal and there is no labored respiratory effort. Examination of the left lower extremity reveals diffuse edema of the arm elbow and forearm. There is no obvious bruising. She is protecting her which is the in the the elbow and she is tender to palpation. Distal neurovascular exam is normal. RADIOLOGIC STUDIES: Left shoulder films revealed the presence of severe arthrosis of the glenohumeral joint with preserved acromial humeral space. Large osteophyte formation. Subchondral sclerosis. Left elbow films revealed the presence of a very displaced olecranon fracture. Diffuse osteopenia. ASSESSMENT: Closed fracture of the left olecranon, displaced. 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 PLAN: The patient will be taken to the operating room for open reduction internal fixation of the elbow fracture. Procedure explained to the patient and the daughter could understand, risks, benefits and possible complications and the consent form will be signed. DONTE MARRERO MD Aug 25, 2024 13:54
[2024-08-25] MEDS: ceFAZolin SODIUM 1 GM VIAL IRRIG ONE (13:56)
--- NOTE | 2024-08-25 15:42 | PN ---
I just completed an open reduction internal fixation of the patient's left elbow for treatment of the fracture. When I notified the daughters patient that the fracture has been repair she mentioned to me that the mother had been complaining of significant hip pain. She mentioned to me that they took x-rays in the emergency room but they told her they were negative for fractures. I have reviewed the x-rays a few moments ago and I notified her that in my opinion there is a Garden type three femoral neck fracture. I also mentioned that I am going to order a CT scan to confirm the grade of the displacement but that she will definitely need surgery which will be scheduled for this . The patient's daughter understands the plan and agrees. The patient will be notified tomorrow. Vitals/Labs Vital Signs Date Time Temp Pulse Resp B/P (MAP) Pulse Ox O2 Delivery O2 Flow Rate FiO2 08/25/24 12:55 98.4 83 16 128/58 98 Nasal Cannula 2.0 08/25/24 04:38 21 Laboratory Tests 08/24/24 19:33 08/25/24 04:51 Medications Current Medications Morphine Sulfate 2 mg ONCE ONCE IM Last administered on 08/24/24at 18:38; Start 08/24/24 at 18:00; Stop 08/24/24 at 18:01; Status DC Morphine Sulfate 2 mg ONCE ONCE IVP Last administered on 08/24/24at 19:40; Start 08/24/24 at 19:30; Stop 08/24/24 at 19:31; Status DC Sodium Chloride 1,000 ml @ 100 mls/hr Q10H IV Last administered on 08/24/24at 20:48; Start 08/24/24 at 20:30; Stop 09/23/24 at 20:29 Hydromorphone HCl 0.5 mg Q3H ONCE IVP Last administered on 08/24/24at 22:41; Start 08/24/24 at 20:30; Stop 08/24/24 at 20:31; Status DC Hydromorphone HCl 0.5 mg Q3H3 PRN IVP Last administered on 08/25/24at 10:07; Start 08/25/24 at 06:00; Stop 08/30/24 at 05:59 Cefazolin Sodium 2 gm ONCALL ONCE IVPB Last administered on 08/25/24at 13:30; Start 08/25/24 at 13:00; Stop 08/25/24 at 13:01; Status DC Cefazolin Sodium 2 gm STK-MED ONCE .ROUTE; Start 08/25/24 at 10:57; Stop 08/25/24 at 10:57; Status DC Lidocaine HCl 100 mg STK-MED ONCE .ROUTE; Start 08/25/24 at 11:13; Stop 08/25/24 at 11:14; Status DC Ondansetron HCl 4 mg STK-MED ONCE .ROUTE; Start 08/25/24 at 11:13; Stop 08/25/24 at 11:14; Status DC Succinylcholine Chloride 200 mg STK-MED ONCE .ROUTE; Start 08/25/24 at 11:14; Stop 08/25/24 at 11:14; Status DC Dexamethasone Sodium Phosphate 10 mg STK-MED ONCE .ROUTE; Start 08/25/24 at 11:14; Stop 08/25/24 at 11:14; Status DC Glycopyrrolate 1 mg STK-MED ONCE .ROUTE; Start 08/25/24 at 11:14; Stop 08/25/24 at 11:14; Status DC Propofol 200 mg STK-MED ONCE IV; Start 08/25/24 at 11:14; Stop 08/25/24 at 11:14; Status DC Neostigmine Methylsulfate 10 mg STK-MED ONCE IV; Start 08/25/24 at 11:14; Stop 08/25/24 at 11:14; Status DC Rocuronium [place]vadera 50 mg STK-MED ONCE .ROUTE; Start 08/25/24 at 11:14; Stop 08/25/24 at 11:14; Status DC Fentanyl Citrate 100 mcg STK-MED ONCE .ROUTE; Start 08/25/24 at 11:14; Stop 08/25/24 at 11:15; Status DC Midazolam HCl 2 mg STK-MED ONCE .ROUTE; Start 08/25/24 at 11:15; Stop 08/25/24 at 11:15; Status DC Ropivacaine 150 mg STK-MED ONCE .ROUTE; Start 08/25/24 at 11:17; Stop 08/25/24 at 11:17; Status DC Albumin Human 250 ml @ As Directed STK-MED ONCE IV; Start 08/25/24 at 11:19; Stop 08/25/24 at 11:19; Status DC Cefazolin Sodium 1 gm STK-MED ONCE .ROUTE; Start 08/25/24 at 12:59; Stop 08/25/24 at 13:04; Status DC Cefazolin Sodium 1 gm STK-MED ONCE IRRIG Last administered on 08/25/24at 13:56; Start 08/25/24 at 13:56; Stop 08/25/24 at 13:57; Status DC Fentanyl Citrate 100 mcg STK-MED ONCE .ROUTE; Start 08/25/24 at 14:10; Stop 08/25/24 at 14:10; Status DC DONTE MARRERO MD Aug 25, 2024 15:42
--- NOTE | 2024-08-25 15:55 | HMCIMG ---
ELBOW 2VWS LT REASON: ORIF LEFT ELBOW,SX TECHNIQUE: 3 surgical spot views were obtained. These document operative reduction internal fixation of left proximal ulnar fracture, reduction appears anatomic. Fluoroscopy time was 24 seconds. IMPRESSION: 1. Documentation of ORIF procedure left proximal ulnar fracture.
--- NOTE | 2024-08-25 16:08 | OP ---
Operative Note: DATE OF PROCEDURE: 08/25/24 SURGEON: DONTE MARRERO MD MANAGER CORPORATE: [Junior Segovia CFA] ANESTHESIA: [General anesthesia plus regional block] PREOPERATIVE DIAGNOSIS: [Left elbow displaced olecranon fracture, closed] POSTOPERATIVE DIAGNOSIS: [Same] PROCEDURE: [Left elbow olecranon fracture open reduction internal fixation with cerclage wire technique] ESTIMATED BLOOD LOSS: [Less than 50 mL] INDICATIONS: [The patient is an 83-year-old female that sustained in a fall the night before landing on her left side. The patient complained of pain in the left side and was brought to the emergency room for evaluation where she was found to have an olecranon fracture. When I was visiting with the patient and her daughter this morning she also stated that she was complaining of difficult shoulder pain and a thorough review of the x-rays there were no fractures noted except for severe arthritis. The patient is brought to the operating room for internal fixation of the left elbow, procedure explained, risks, benefits and possible complications and has not agreed signed the consent form. DESCRIPTION OF PROCEDURE: [After adequate general anesthesia and placement of a regional block the patient was placed in the supine position and the tourniquet was applied to the proximal arm. The left upper extremity was then prepped and draped in the usual manner. After exsanguination of the arm we proceeded to inflate the tourniquet to 250 mmHg annotation was given to the posterior elbow where an incision was made across the olecranon area through the skin followed by dissection of the subcutaneous edematous tissue until we reached the ulna and then the fracture site where a large hematoma was present and proximally toward the triceps. Proceeded to irrigate the area and then with the use of a rongeur we proceeded to remove all of the debris and hematoma present the fracture consisted of the proximal part of the olecranon which was easily reduced with the use of a clamp then proceeded to place sutures around the size of the olecranon in the soft tissue which maintain the reduction. Two 1.5 mm K-wires were placed from distal to proximal in a parallel fashion and slightly oriented anteriorly until the anterior cortex of the coronoid area was reached and penetrated. X-rays were taken and these demonstrate that the pins have gone in the adequate direction and exited in the anterior part of the coronoid. We then proceeded to dissect free a small amount of muscle in the ulna three 2-2-1/2 in ches from the fracture site and a transverse hole was drilled in the shaft through which then a 22 gauge cerclage wire was then passed and brought alone in a [id number] around the pins passive under the triceps tendon. We then proceeded to tighten the wire to provide compression. X-rays revealed an adequate compression and reduction of the fracture and we proceeded then to trim the proximal end of the K-wires previous VAC in the mouth proximally cm then we proceeded to bend the tip of the proximal wires in a hook shape and then rotating them 180 and then we proceeded to penetrate them through the muscle grabbing the cerclage wire. Once the pins were secured x-rays were taken and the reduction was noted to be adequate with a good penetration of the anterior cortex by the pins. Then we proceeded to deflate the tourniquet, the wound was copiously irrigated with antibiotic solution and then we proceeded to close the swollen subcutaneous tissue with a 1. Vicryl single stitches followed by closure of subcutaneous tissue with 2-0 Monocryl inverted stitches and the skin was closed with 3-0 Monocryl subcuticularly. Dermabond was applied followed by application of the soft dressing and an Bib bandage. The drapes were removed and the patient was then placed in her arm sling, transferred to her bed and taken to recovery room for follow-up by anesthesia. There were no complications in the procedure.] DONTE MARRERO MD Aug 25, 2024 16:08
[2024-08-25] MEDS ORDERED: DiphenhydrAMINE HCL 25 MG CAPSULE PO PRN (16:30)
[2024-08-25] MEDS ORDERED: PoTASSium chloRIDE 20MEQ/100ML 100 ML IV PRN (16:30)
[2024-08-25] MEDS: INSULIN humuLIN R 100 UNIT/ML 3ML SQ SCH (16:30)
[2024-08-25] MEDS ORDERED: TEMAZepam 15 MG CAPSULE PO PRN (16:30)
[2024-08-25] MEDS ORDERED: PoTASSium chl 10% ELIXIR 20MEQ 20 MEQ/15 ML UDCUP PO PRN (16:30)
[2024-08-25] MEDS ORDERED: PoTASSium chloRIDE 20MEQ ER 20 MEQ ERTAB PO PRN (16:30)
[2024-08-25] MEDS ORDERED: CALCIUM CARB 500MG PO PRN (16:30)
[2024-08-25] MEDS ORDERED: DiphenhydrAMINE HCL 50 MG/ML VIAL IVP PRN (16:30)
[2024-08-25] MEDS ORDERED: FERROUS FUMARATE 324 MG TABLET PO PRN (16:30)
--- NOTE | 2024-08-25 16:31 | NUR ---
[facility] CM SPOKE TO PT ASSESSMENT DONE. PATIENT IS SEMI-INDEPENDENT PRIOR TO ADMISSION, LIVE AT HOME ALONE, FAMILY LIVES CLOSE BY. PT HAS A WALKER. DENIES ANY OTHER EQUIPMENT/SERVICES. FEELS SAFE TO GO BACK HOME, FAMILY ABLE TO ASSIST WITH TRANSPORTATION AND NEEDS NECESSARY. DISCUSSED POSSIBLE SNF VS HOME W/HH, PT OPEN TO SNF, WOULD LIKE TO WAIT UNTIL HER LEFT HIP IS FIXED. DCP HOME VS W/HH OR SNF. CM TO REASSESS ONCE PT STABLE AND CLOSER TO DC. CM TO CONTINUE TO FOLLOW UP. Addendum: 08/26/24 at 1633 by BENJAMÍN KING LVN CM Amended: Links added.
[2024-08-25] MEDS: LAbetaLOL 20MG SYG IV ONE (17:18)
[2024-08-25] MEDS: MEPERIDINE-PF 25 MG/ML SYG ONE (17:18)
[2024-08-25] MEDS: 0.9%NACL 1000ML 1,000 ML IV SCH (18:40)
[2024-08-25] MEDS: ketOROlac 15MG/ML VIAL (15MG/ML) IV PRN (20:20)
[2024-08-25] MEDS: ceFAZolin SODIUM 2 GM VIAL IVP SCH (22:10)
[2024-08-25] MEDS: HYDROcodone/APAP 5/325 1 TAB TABLET PO PRN (22:27)
[2024-08-26] VITALS (9 sets, daily range): BP systolic 140–162; BP diastolic 62–77; PULSE 73–99; RESP 16–19; TEMP 97.9–98.3; O2SAT 94–97
--- NOTE | 2024-08-26 00:50 | NUR ---
per RN Leno pt is still post-op//he will check back later to see if they can tolerate coming to CT
[2024-08-26 05:35] LABS: HEMATOCRIT 35.5 % (36-48); MEAN CORPUSCULAR HEMOGLOBIN 30.7 pg (27.0-33.0); MEAN CORPUSCULAR HGB CONC 32.7 g/dL (32.0-36.0); MEAN CORPUSCULAR VOLUME 93.9 fL (79-99); RED BLOOD CELL COUNT(AUTO) 3.78 MIL/uL (4.00-5.50); RED CELL DISTRIBUTION WIDTH 13.7 % (11.0-15.5); WHITE BLOOD COUNT (AUTO) 9.6 K/uL (4.8-10.8)
[2024-08-26 06:03] LABS: CREATININE 0.7 mg/dL (0.5-1.0)
--- NOTE | 2024-08-26 07:55 | PN ---
Ortho postop day one. This morning patient is in bed resting comfortably. Daughters at the bedside. Reports mild to moderate pain. Vital signs this morning are stable and she is afebrile. Laboratory results reviewed. She is voiding via indwelling catheter. Urine is clear and yellow. Reinforced the use of incentive spirometry. Dressing is intact. Distal neurovascular exam intact. Able to open and close hand on command without difficulty has full range of motion of the wrist. Limitations on elbows expected. She is instructed on gentle passive assist extension and flexion as well as supination and pronation exercises and including wrist and hand motion. Discussed the operative findings with the patient and daughter. Discussed that she is still pending moving forward to CT study to grade the fracture which we will again likely still need surgery as mentioned by Dr. Gu. Assessment: Status post open reduction internal fixation of olecranon fracture. Left hip fracture. Acute postoperative blood loss anemia Plan: Continue with Dr. Gu protocol. Obtain CT of left hip. Acute postoperative blood loss anemia addressed with the protocol as necessary Vitals/Labs Vital Signs Date Time Temp Pulse Resp B/P (MAP) Pulse Ox O2 Delivery O2 Flow Rate FiO2 08/26/24 06:48 76 18 N/Cannula Low lpm 2.0 32 08/26/24 03:56 98.1 145/68 94 Laboratory Tests 08/26/24 04:59 Medications Current Medications Morphine Sulfate 2 mg ONCE ONCE IM Last administered on 08/24/24at 18:38; Start 08/24/24 at 18:00; Stop 08/24/24 at 18:01; Status DC Morphine Sulfate 2 mg ONCE ONCE IVP Last administered on 08/24/24at 19:40; Start 08/24/24 at 19:30; Stop 08/24/24 at 19:31; Status DC Sodium Chloride 1,000 ml @ 100 mls/hr Q10H IV Last administered on 08/24/24at 20:48; Start 08/24/24 at 20:30; Stop 09/23/24 at 20:29 Hydromorphone HCl 0.5 mg Q3H ONCE IVP Last administered on 08/24/24at 22:41; Start 08/24/24 at 20:30; Stop 08/24/24 at 20:31; Status DC Hydromorphone HCl 0.5 mg Q3H3 PRN IVP Last administered on 08/25/24at 10:07; Start 08/25/24 at 06:00; Stop 08/25/24 at 16:38; Status DC Cefazolin Sodium 2 gm ONCALL ONCE IVPB Last administered on 08/25/24at 13:30; Start 08/25/24 at 13:00; Stop 08/25/24 at 13:01; Status DC Cefazolin Sodium 2 gm STK-MED ONCE .ROUTE; Start 08/25/24 at 10:57; Stop 08/25/24 at 10:57; Status DC Lidocaine HCl 100 mg STK-MED ONCE .ROUTE; Start 08/25/24 at 11:13; Stop 08/25/24 at 11:14; Status DC Ondansetron HCl 4 mg STK-MED ONCE .ROUTE; Start 08/25/24 at 11:13; Stop 08/25/24 at 11:14; Status DC Succinylcholine Chloride 200 mg STK-MED ONCE .ROUTE; Start 08/25/24 at 11:14; Stop 08/25/24 at 11:14; Status DC Dexamethasone Sodium Phosphate 10 mg STK-MED ONCE .ROUTE; Start 08/25/24 at 11:14; Stop 08/25/24 at 11:14; Status DC Glycopyrrolate 1 mg STK-MED ONCE .ROUTE; Start 08/25/24 at 11:14; Stop 08/25/24 at 11:14; Status DC Propofol 200 mg STK-MED ONCE IV; Start 08/25/24 at 11:14; Stop 08/25/24 at 11:14; Status DC Neostigmine Methylsulfate 10 mg STK-MED ONCE IV; Start 08/25/24 at 11:14; Stop 08/25/24 at 11:14; Status DC Rocuronium Rosie 50 mg STK-MED ONCE .ROUTE; Start 08/25/24 at 11:14; Stop 08/25/24 at 11:14; Status DC Fentanyl Citrate 100 mcg STK-MED ONCE .ROUTE; Start 08/25/24 at 11:14; Stop 08/25/24 at 11:15; Status DC Midazolam HCl 2 mg STK-MED ONCE .ROUTE; Start 08/25/24 at 11:15; Stop 08/25/24 at 11:15; Status DC Ropivacaine 150 mg STK-MED ONCE .ROUTE; Start 08/25/24 at 11:17; Stop 08/25/24 at 11:17; Status DC Albumin Human 250 ml @ As Directed STK-MED ONCE IV; Start 08/25/24 at 11:19; Stop 08/25/24 at 11:19; Status DC Cefazolin Sodium 1 gm STK-MED ONCE .ROUTE; Start 08/25/24 at 12:59; Stop 08/25/24 at 13:04; Status DC Cefazolin Sodium 1 gm STK-MED ONCE IRRIG Last administered on 08/25/24at 13:56; Start 08/25/24 at 13:56; Stop 08/25/24 at 13:57; Status DC Fentanyl Citrate 100 mcg STK-MED ONCE .ROUTE; Start 08/25/24 at 14:10; Stop 08/25/24 at 14:10; Status DC Labetalol HCl 20 mg STK-MED ONCE IV Last administered on 08/25/24at 17:18; Start 08/25/24 at 16:21; Stop 08/25/24 at 16:21; Status DC Sodium Chloride 1,000 ml @ 100 mls/hr Q10H IV Last administered on 08/25/24at 18:40; Start 08/25/24 at 16:30; Stop 08/26/24 at 16:29 Acetaminophen/ Hydrocodone Bitart 1 tab Q4H PRN PO; Start 08/25/24 at 16:30; Stop 08/30/24 at 16:29 Acetaminophen/ Hydrocodone Bitart 2 tab Q4H PRN PO Last administered on 08/25/24at 22:27; Start 08/25/24 at 16:30; Stop 08/30/24 at 16:29 Enoxaparin Sodium 40 mg ONCE ONCE SQ; Start 08/26/24 at 09:00; Stop 08/26/24 at 09:01 Polyethylene Glycol 17 gm DAILY PO; Start 08/26/24 at 09:00; Stop 09/25/24 at 08:59 Bisacodyl 10 mg DAILY PRN PO; Start 08/27/24 at 16:30; Stop 09/26/24 at 16:29 Ketorolac Tromethamine 15 mg Q6H PRN IV Last administered on 08/26/24at 05:01; Start 08/25/24 at 17:00; Stop 08/30/24 at 16:59 Ferrous Fumarate 324 mg DAILY PRN PO; Start 08/25/24 at 16:30; Stop 09/24/24 at 16:29 Temazepam 15 mg HS PRN PO; Start 08/25/24 at 16:30; Stop 09/24/24 at 16:29 Calcium Carbonate 500 mg Q12H PRN PO; Start 08/25/24 at 16:30; Stop 09/24/24 at 16:29 Diphenhydramine HCl 25 mg Q6H PRN PO; Start 08/25/24 at 16:30; Stop 09/24/24 at 16:29 Diphenhydramine HCl 25 mg Q6H PRN IVP; Start 08/25/24 at 16:30; Stop 09/24/24 at 16:29 Insulin Human Regular INSULIN SLIDING SCAL... ACHS SQ; Start 08/25/24 at 16:30; Stop 09/24/24 at 16:29 Cefazolin Sodium 2 gm Q8H IVP Last administered on 08/26/24at 04:58; Start 08/25/24 at 21:00; Stop 08/26/24 at 05:01; Status DC Potassium Chloride 100 ml @ 100 mls/hr AD PRN IV; Start 08/25/24 at 16:30; Stop 09/24/24 at 16:29 Potassium Chloride 20 meq AD PRN PO; Start 08/25/24 at 16:30; Stop 09/24/24 at 16:29 Potassium Chloride 20 meq AD PRN PO; Start 08/25/24 at 16:30; Stop 09/24/24 at 16:29 Meperidine HCl 25 mg STK-MED ONCE .ROUTE Last administered on 08/25/24at 17:18; Start 08/25/24 at 17:05; Stop 08/25/24 at 17:10; Status DC Lactulose 20 gm TID PO; Start 08/26/24 at 09:00; Stop 09/25/24 at 08:59 FRANKLIN CHACON NP Aug 26, 2024 07:55
[2024-08-26] MEDS: SUGAMMADEX SODIUM 200 MG/2 ML VIAL IV ONE (08:05)
[2024-08-26] MEDS: ENOXAPARIN SODIUM 40 MG/0.4 ML SYRINGE SQ ONE (10:06)
[2024-08-26] MEDS: polyETHYLene GLYCol 3350 17 GM POWD.PACK PO SCH (10:06)
[2024-08-26] MEDS: LACTULOSE 20 GM/30 ML UDCUP PO SCH (10:06)
--- NOTE | 2024-08-26 11:35 | HMCIMG ---
CT LOW EXT W/O CONTRAST REASON: left hip femoral neck fracture COMPARISON: None TECHNIQUE: Images are obtained from mid iliac wing through the proximal femur. Sagittal and coronal reconstruction images were then performed. FINDINGS: There is a subcapital fracture of the left femoral neck. There is mild angulation of the distal shaft laterally. There may be a component of impaction. There is no displacement. Acetabulum appears intact as do remaining pelvic bones. Soft tissues appear normal as well. IMPRESSION: 1. Mildly angulated but nondisplaced subcapital fracture left femoral neck.
--- NOTE | 2024-08-26 13:52 | NUR ---
[facility] Consult: Patient assessed by wound healing team. Patient with low johnnie score, per primary nurse, patient with no wounds. Addendum: 08/27/24 at 1352 by MARIE GILMAN RN RN/ERIC Amended: Links added.
--- NOTE | 2024-08-26 22:41 | PN ---
PROGRESS NOTE PROGRESS NOTE DATE OF PROGRESS NOTE: 08/26/24 SUBJECTIVE: no new complaints VITAL SIGNS Vital Signs Date Time Temp Pulse Resp B/P (MAP) Pulse Ox O2 Delivery O2 Flow Rate FiO2 08/26/24 20:00 98.1 85 19 162/77 96 Nasal Cannula 2.0 08/26/24 18:49 32 PHYSICAL EXAM: 83 y/o female who presents to the ED with daughter after a fall. She reports she slipped and fell hitting her left side, and reports to hit the back of her head. Denies any LOC, denies any vomiting, abnormal behavioral, and denies taki ng blood thinners. The patient complaining of left shoulder, elbow, left hip pain. PMHx asthma, DM, hypercholesterolemia Allergies: Coded Allergies: iodine (Unverified Allergy, Unknown, 05/13/17) Home Meds Reported Medications [Hydrocodone/Acet] No Conflict Check, PO Q6HPRN PRN for PAIN 08/17/19 Ibuprofen (Motrin Ib) 200 Mg Tablet, 2 TAB PO Q6HPRN PRN for PAIN, TAB 08/17/19 [Proventil] No Conflict Check, 1 PUFF IH AD PRN for ASTHMA 08/17/19 Escitalopram Oxalate (Escitalopram Oxalate) 10 Mg Tablet, 10 MG PO AM, TAB 08/17/19 Vit C/E/Zn/Coppr/Lutein/Zeaxan (Preservision Areds 2 Softgel) 1 Each Capsule, 1 EACH PO BID, CAP 08/17/19 Gabapentin (Gabapentin) 600 Mg Tablet, 600 MG PO BID, TAB 08/17/19 Amlodipine Besylate (Norvasc) 10 Mg Tablet, 10 MG PO HS, TAB 08/17/19 Lactulose (Lactulose) 10 Gm/15 Ml Solution, 30 ML PO AD PRN for CONSTIPATION, ML 08/17/19 Montelukast Sodium (Singulair) 10 Mg Tablet, 10 MG PO DAILY, TAB 05/13/17 Levothyroxine Sodium (Synthroid) 25 Mcg Tablet, 25 MCG PO DAILY, TAB 05/13/17 Olmesartan Medoxomil (Benicar) 40 Mg Tablet, 40 MG PO DAILY, TAB 05/13/17 Past History Past Medical History Past Medical History: Asthma, Diabetes-Type II, High Cholesterol, Heart Disease Past Surgical History: Hysterectomy, Cholecystectomy Surgical History Other: BACK, BLADDER LIFT Review of Systems ROS Dictation Constitutional: Negative for fever,chills, and weight loss Eyes: Negative for injury, pain,redness, and discharge ENT: Negative for injury,pain or swelling Head: Positive for hematoma Cardiovascular: Negative for chest pain, palpitations, and edema Respiratory: Negative for shortness of breath, cough, and wheezing, Abdomen/GI: Negative for abdominal pain, nausea, vomiting, diarrhea, and constipation Back: Negative for injury and pain : Negative for painful urination, bleeding or discharge MS/Extremity: Positive for left shoulder, left elbow, left hip pain Negative for injury and deformity Skin: Negative for rash, and discoloration Neuro: Negative for headache, weakness, numbness, tingling, and seizure Physical Exam Physical Exam Physical Exam Dictation General: awake, alert, no acute distress Head/Face: Normocephalic, atraumatic Eyes: PERRL, EOMI, normal conjunctiva ENT: oral mucosa moist Neck: Normal range of motion Cardiovascular: RRR, normal S1/S2 Respiratory: CTAB, no respiratory distress, no rales or wheezes Skin: Warm, dry, normal turgor, no rash MS/Extremity: Pulses equal, no cyanosis, neurovascular intact, range of motion restricted by pain to the left elbow and shoulder, severe tenderness to the left elbow, hematoma noted to the left elbow Neuro: COAx4, GCS 15, no neurological deficits, cranial nerves 2-12 intact Psych: Normal behavior, mood, and affect normal LABORATORY: Laboratory Result(s) Test 08/26/24 04:59 White Blood Count 9.6 K/uL (4.8-10.8) Red Blood Count 3.78 MIL/uL (4.00-5.50) Hemoglobin 11.6 g/dL (12.0-16.0) Hematocrit 35.5 % (36-48) Mean Corpuscular Volume 93.9 fL (79-99) Mean Corpuscular Hemoglobin 30.7 pg (27.0-33.0) Mean Corpuscular Hemoglobin Concent 32.7 g/dL (32.0-36.0) Red Cell Distribution Width 13.7 % (11.0-15.5) Platelet Count 173 K/uL (130-400) Mean Platelet Volume 10.8 fL (7.5-10.5) Nucleated Red Blood Cells 0.0 % (0.0-0.19) Sodium Level 141 mmol/L (136-145) Potassium Level 4.0 mmol/L (3.5-5.1) Chloride Level 106 mmol/L (101-111) Carbon Dioxide Level 24 mmol/L (21-32) Blood Urea Nitrogen 10 mg/dL (7-18) Creatinine 0.7 mg/dL (0.5-1.0) Glomerular Filtration Rate Calc 85 mL/min (>90) Random Glucose 126 mg/dL (70-105) Total Calcium 8.7 mg/dL (8.5-10.1) INPATIENT MEDS: Current Medications Medications Dose Ordered Sig/Yecenia Start Time Stop Time Status Last Admin Sodium Chloride 1,000 ml @ 100 mls/hr Q10H 08/24/24 20:30 09/23/24 20:29 08/24/24 20:48 Acetaminophen/ Hydrocodone Bitart 1 tab Q4H PRN 08/25/24 16:30 08/30/24 16:29 Acetaminophen/ Hydrocodone Bitart 2 tab Q4H PRN 08/25/24 16:30 08/30/24 16:29 08/26/24 21:15 Polyethylene Glycol 17 gm DAILY 08/26/24 09:00 09/25/24 08:59 08/26/24 10:06 Bisacodyl 10 mg DAILY PRN 08/27/24 16:30 09/26/24 16:29 Ketorolac Tromethamine 15 mg Q6H PRN 08/25/24 17:00 08/30/24 16:59 08/26/24 05:01 Ferrous Fumarate 324 mg DAILY PRN 08/25/24 16:30 09/24/24 16:29 Temazepam 15 mg HS PRN 08/25/24 16:30 09/24/24 16:29 Calcium Carbonate 500 mg Q12H PRN 08/25/24 16:30 09/24/24 16:29 Diphenhydramine HCl 25 mg Q6H PRN 08/25/24 16:30 09/24/24 16:29 Diphenhydramine HCl 25 mg Q6H PRN 08/25/24 16:30 09/24/24 16:29 Insulin Human Regular INSULIN SLIDING SCAL... ACHS 08/25/24 16:30 09/24/24 16:29 Potassium Chloride 100 ml @ 100 mls/hr AD PRN 08/25/24 16:30 09/24/24 16:29 Potassium Chloride 20 meq AD PRN 08/25/24 16:30 09/24/24 16:29 Potassium Chloride 20 meq AD PRN 08/25/24 16:30 09/24/24 16:29 Cefazolin Sodium 2 gm ONCALL PRN 08/27/24 12:00 08/29/24 11:59 PROBLEM LIST: (1) Olecranon fracture (2) Fracture of left hip ICD Code: S72.002A - Fracture of unspecified part of neck of left femur, initial encounter for closed fracture (3) Moderate persistent asthma in adult without complication ICD Code: J45.40 - Moderate persistent asthma, uncomplicated PLAN: Resume home medication and consult orthopedics and symptomatic pain treatment Medically cleared for hip surgery no contraindications asthma stable dvt prophylaxis CHRIST MIRZA MD Aug 26, 2024 22:40
[2024-08-27] VITALS (33 sets, daily range): BP systolic 123–166; BP diastolic 60–87; PULSE 68–103; RESP 15–21; TEMP 97.1–98.3; O2SAT 95–96
[2024-08-27 04:27] LABS: HEMATOCRIT 32.3 % (36-48); MEAN CORPUSCULAR HEMOGLOBIN 30.5 pg (27.0-33.0); MEAN CORPUSCULAR HGB CONC 31.9 g/dL (32.0-36.0); MEAN CORPUSCULAR VOLUME 95.6 fL (79-99); RED BLOOD CELL COUNT(AUTO) 3.38 MIL/uL (4.00-5.50); RED CELL DISTRIBUTION WIDTH 13.9 % (11.0-15.5); WHITE BLOOD COUNT (AUTO) 8.8 K/uL (4.8-10.8)
[2024-08-27 05:14] LABS: CREATININE 0.7 mg/dL (0.5-1.0); POTASSIUM 3.7 mmol/L (3.5-5.1)
[2024-08-27] MEDS ORDERED: FURO20TA6 PO (07:45)
[2024-08-27] MEDS ORDERED: GABA300C PO (07:45)
--- NOTE | 2024-08-27 08:53 | NUR ---
SURGERY 0825 PATIENT LEFT VIA STRETCHER, ACCOMPANIED BY DAUGHTER TO SCHEDULED LEFT HIP SURGERY. NO S/S OF DISTRESS NOTED.
[2024-08-27] MEDS ORDERED: LIDOCAINE PF 100MG/5ML (2%) SYRINGE 5ML ONE (09:30)
[2024-08-27] MEDS ORDERED: SUCCINYLCHOLINE CHLORIDE 20 MG/ML 10 ML VIAL ONE (09:31)
[2024-08-27] MEDS ORDERED: GLYCOPYRROLATE 0.2 MG/ML 5 ML VIAL ONE (09:31)
[2024-08-27] MEDS ORDERED: dexaMETHasone SOD PHOSPHATE 10MG/ML 1ML VIAL ONE (09:31)
[2024-08-27] MEDS ORDERED: NEOSTIGMINE METHYLSULFATE 1MG/ML IV ONE (09:32)
[2024-08-27] MEDS ORDERED: rocuRONium bROMide 10MG/1ML 5ML VL ONE (09:32)
[2024-08-27] MEDS ORDERED: ondanSETRON 4MG INJ ONE ×2 (09:32→12:00)
[2024-08-27] MEDS ORDERED: proPOFol 10 MG/ML 20ML VIAL IV ONE (09:32)
[2024-08-27] MEDS ORDERED: FENTanyl CITRate PF 50 MCG/1 ML 2ML VIAL ONE ×2 (09:33→11:27)
[2024-08-27] MEDS ORDERED: MIDAZOLAM HCL 1 MG/ML 2ML VIAL ONE (09:34)
[2024-08-27] MEDS ORDERED: ALBUMIN (HUMAN) 5% 500 ML IV ONE (09:38)
[2024-08-27] MEDS: ceFAZolin SODIUM 2 GM VIAL ONE (11:03)
[2024-08-27] MEDS: ceFAZolin SODIUM 1 GM VIAL ONE (11:19)
[2024-08-27] MEDS: TRANEXAMIC ACID 1000MG/10ML ONE (11:27)
--- NOTE | 2024-08-27 11:57 | NUR ---
ROUNDS DR. MIRZA ROUNDED AT BEDSIDE. PATIENT IN HIP SURGERY PROCEDURE. VORB OK TO CONTINUE WITH HOME MEDICATIONS PRESCRIBED. ORDERS ENTERED AND CARRIED OUT. NO FURTHER ORDERS GIVEN. WILL CONTINUE TO MONITOR.
[2024-08-27] MEDS ORDERED: ceFAZolin SODIUM 2 GM VIAL IVPB PRN (12:00)
[2024-08-27] MEDS: SUGAMMADEX SODIUM 200 MG/2 ML VIAL IV ONE (12:10)
--- NOTE | 2024-08-27 12:52 | OP ---
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 STANDARD 28 MM FEMORAL HEAD. 44 MM BIPOLAR CUP] PROCEDURE: [LEFT HIP HEMIARTHROPLASTY] ESTIMATED BLOOD LOSS: [150 ML] INDICATIONS: [83-YEAR-OLD FEMALE THAT SUSTAINED IN A FALL SEVERAL DAYS AGO AND WAS ADMITTED. X-RAYS REVEALED THE PRESENCE OF A FEMORAL NECK FRACTURE GARDEN TYPE [address] SCAN. PATIENT IS BEING BROUGHT TO THE OPERATING ROOM FOR A HIP HEMIARTHROPLASTY, PROCEDURE UNDERSTOOD, RISKS, BENEFITS AND POSSIBLE COMPLICATIONS AND THE PATIENT AND RELATIVES AGREED SIGNED THE CONSENT FORM] DESCRIPTION OF PROCEDURE: [AFTER ADEQUATE GENERAL ANESTHESIA WAS ACHIEVED AND REGIONAL BLOCK OBTAINED THE PATIENT WAS PLACED IN THE RIGHT LATERAL DECUBITUS AND THE LOWER EXTREMITY WAS PREPPED AND DRAPED IN THE USUAL MANNER. AFTER IDENTIFICATION OF THE BONY LANDMARKS AND INCISION WAS CARRIED DOWN IN CURVILINEAR FASHION CENTERED ON THE GREATER TROCHANTER THROUGH THE SKIN FOLLOWED BY DISSECTION OF THE SUBCUTANEOUS TISSUE. THE MOST PROXIMAL ASPECT OF THE FASCIA FABIOLA AND A FASCIA OF THE GLUTEUS EULALIA WERE THEN OPENED AND THE FIBERS OF THE GLUTEUS EULALIA WERE THEN DIGITALLY ENTERING INTO THE DEEP SPACE. THE CHARNLEY RETRACTOR WAS THEN APPLIED AND WE IDENTIFIED THE POSTERIOR BORDER OF THE GLUTEUS MEDIUS WHICH WAS ELEVATED AND A CURVED HOHMANN RETRACTOR WAS INSERTED TO ELEVATED AND EXPOSE THE GLUTEUS MINIMUS AND PIRIFORMIS INTERVAL WHICH WAS THEN INCISED AND THE PIRIFORMIS WELL THE REST OF THE SHORT EXTE RNAL ROTATORS WERE THEN ELEVATED FROM THE FEMORAL NECK INCLUDING THE CAPSULE ENTERING INTO THE JOINT. THE HEMATOMA FROM THE FRACTURE WAS THEN REMOVED AND THE HIP WAS THEN FLEXED AND INTERNALLY ROTATED EXPOSING THE FRACTURE NECK AND AFTER RETRACTORS WERE APPLIED WE PROCEEDED TO USE THE OSCILLATING SAW TO DO OUR FEMORAL NECK CUT REMOVING THE FRAGMENT. THEN THE LEG WAS EXTENDED AND RETRACTORS WERE APPLIED ANTERIOR AND POSTERIOR TO THE ACETABULUM TO REMOVE THE FEMORAL HEAD THAT WAS PASSED TO THE BACK TABLE TO MEASURE THE DIAMETER WHILE WE EXPLORED THE ACETABULUM NOTICING NO ABNORMALITIES IN THE ARTICULAR SURFACE AND EXCISING THE REMNANTS OF THE ROUND LIGAMENT. THE TRIAL FEMORAL BIPOLAR CUP WAS INSERTED AND NOTED THAT FITTED ADEQUATELY AND THIS WAS REMOVED. WE THEN EXPOSED AGAIN THE PROXIMAL ASPECT OF THE FEMUR AND USE A BOX OSTEOTOME TO ENTER THE CANAL FOLLOWED BY THE CANAL FINDER AND THEN WE PROCEEDED TO REAM AND THEN BROACHED THE CANAL TO THE APPROPRIATE SIZE LEAVING THE LAST BROACH IN PLACE AND APPLY IN THE STANDARD NECK AND FEMORAL HEAD WITH A BIPOLAR CUP REDUCING THE HIP. X-RAYS TAKEN AND EXAMINATION REVEALED ADEQUATE PLACEMENT OF THE COMPONENTS AND ADEQUATE LENGTH OF THE EXTREMITY. THE HIP WAS DISLOCATED AND THE COMPONENTS WERE REMOVED PROCEEDING THEN TO ONCE AGAIN IRRIGATE THE WOUND WITH ANTIBIOTIC SOLUTION USING JET LAVAGE. WE THEN PROCEEDED TO USE THE BRUSH TO CLEAN THE FEM ORAL CANAL AND WE APPLIED A CEMENT RESTRICTOR FOLLOWED BY APPLICATION OF A SUCTION TAMPON WHILE CEMENT WAS PREPARED IN THE BACK TABLE AND WHEN THIS WAS READY WE PROCEEDED TO APPLY UNDER PRESSURE OF THE CEMENT INTO THE CANAL AND ONCE THIS WAS FILLED WE PROCEEDED TO APPLY THE FINAL COMPONENT REMOVING THE EXCESS CEMENT AND HELD IN POSITION UNTIL THE CEMENT DRIED. ONCE THIS HAPPENED WE THEN PROCEEDED TO APPLY THE TRIAL FEMORAL HEAD AND BIPOLAR CUP AND THE HIP WAS REDUCED AND RECHECK THE LENGTH AND OFFSET MAKING MODIFICATIONS NEEDED USING X-RAYS TO VERIFY POSITION. THE HIP WAS DISLOCATED AND THE FINAL COMPONENTS INCLUDING THE BIPOLAR CUP WAS THEN INSERTED PREVIOUS IRRIGATION OF THE WOUND AND THE HIP WAS THEN REDUCED. A DILUTED BETADINE SOLUTION WAS THEN USED TO IRRIGATE THE WOUND FOLLOWED BY IRRIGATION WITH ANTIBIOTIC SOLUTION AND WE PROCEEDED TO CLOSE THE WOUND WITH REAPPROXIMATION OF THE CAPSULE WITH #1 VICRYL, THE SHORT EXTERNAL ROTATORS WITH #2 PDS PASSING THE SUTURES THROUGH THE BONE. FINAL X-RAYS WERE TAKEN AND THEN WE PROCEEDED TO REAPPROXIMATE THE TENSOR FASCIA FABIOLA AND GLUTEUS EULALIA FASCIA WITH #1 VICRYL STITCHES IN A CROSSED AND RUNNING FASHION RESPECTIVELY AND WE THEN PROCEEDED TO CLOSE THE SUBCUTANEOUS TISSUE WITH 2-0 MONOCRYL INVERTED STITCHES AND THE SKIN WITH 3-0 MONOCRYL SUBCUTICULARLY. A SUCTION DRESSING WAS THEN APPLIED TO THE INCISION. THE PATIENT DRAPES WERE THEN REMOVED, SHE WAS PLACED IN THE SUPINE POSITION AND TRANSFERRED TO HER BED TO BE TAKEN TO RECOVERY ROOM FOR FOLLOW-UP ANESTHESIA. THERE WERE NO COMPLICATIONS DURING THE PROCEDURE.] DONTE MARRERO MD Aug 27, 2024 12:52
[2024-08-27] MEDS ORDERED: PoTASSium chl 10% ELIXIR 20MEQ 20 MEQ/15 ML UDCUP PO PRN (13:00)
[2024-08-27] MEDS ORDERED: DiphenhydrAMINE HCL 50 MG/ML VIAL IVP PRN (13:00)
[2024-08-27] MEDS ORDERED: PoTASSium chloRIDE 20MEQ ER 20 MEQ ERTAB PO PRN (13:00)
[2024-08-27] MEDS ORDERED: CALCIUM CARB 500MG PO PRN (13:00)
[2024-08-27] MEDS ORDERED: ondanSETRON 4MG INJ IVP PRN (13:00)
[2024-08-27] MEDS ORDERED: PoTASSium chloRIDE 20MEQ/100ML 100 ML IV PRN (13:00)
[2024-08-27] MEDS ORDERED: FERROUS FUMARATE 324 MG TABLET PO PRN (13:00)
[2024-08-27] MEDS: 0.9%NACL 1000ML 1,000 ML IV SCH (13:09)
--- NOTE | 2024-08-27 13:10 | NUR ---
REPORT RECEIVED FROM PRIMARY NURSE. I WILL ASSUME CARE OF PATIENT POST OP. THANK YOU
[2024-08-27] MEDS ORDERED: ceFAZolin SODIUM 2 GM VIAL IVPB SCH (13:30)
[2024-08-27] MEDS: MEPERIDINE-PF 25 MG/ML SYG ONE ×2 (13:40→13:51)
--- NOTE | 2024-08-27 14:45 | NUR ---
POST -OP LEFT HIP JULIA ARTHROPLASTY- VS STABLE
--- NOTE | 2024-08-27 15:22 | PN ---
PROGRESS NOTE PROGRESS NOTE DATE OF PROGRESS NOTE: 08/27/24 SUBJECTIVE: pending hip surgery VITAL SIGNS Vital Signs Date Time Temp Pulse Resp B/P (MAP) Pulse Ox O2 Delivery O2 Flow Rate FiO2 08/27/24 14:47 95 Nasal Cannula* 3 32 08/27/24 14:40 97.2 89 16 146/63 PHYSICAL EXAM: 83 y/o female who presents to the ED with daughter after a fall. She reports she slipped and fell hitting her left side, and reports to hit the back of her head. Denies any LOC, denies any vomiting, abnormal behavioral, and denies fallon ing blood thinners. The patient complaining of left shoulder, elbow, left hip pain. PMHx asthma, DM, hypercholesterolemia Allergies: Coded Allergies: iodine (Unverified Allergy, Unknown, 05/13/17) Home Meds Reported Medications [Hydrocodone/Acet] No Conflict Check, PO Q6HPRN PRN for PAIN 08/17/19 Ibuprofen (Motrin Ib) 200 Mg Tablet, 2 TAB PO Q6HPRN PRN for PAIN, TAB 08/17/19 [Proventil] No Conflict Check, 1 PUFF IH AD PRN for ASTHMA 08/17/19 Escitalopram Oxalate (Escitalopram Oxalate) 10 Mg Tablet, 10 MG PO AM, TAB 08/17/19 Vit C/E/Zn/Coppr/Lutein/Zeaxan (Preservision Areds 2 Softgel) 1 Each Capsule, 1 EACH PO BID, CAP 08/17/19 Gabapentin (Gabapentin) 600 Mg Tablet, 600 MG PO BID, TAB 08/17/19 Amlodipine Besylate (Norvasc) 10 Mg Tablet, 10 MG PO HS, TAB 08/17/19 Lactulose (Lactulose) 10 Gm/15 Ml Solution, 30 ML PO AD PRN for CONSTIPATION, ML 08/17/19 Montelukast Sodium (Singulair) 10 Mg Tablet, 10 MG PO DAILY, TAB 05/13/17 Levothyroxine Sodium (Synthroid) 25 Mcg Tablet, 25 MCG PO DAILY, TAB 05/13/17 Olmesartan Medoxomil (Benicar) 40 Mg Tablet, 40 MG PO DAILY, TAB 05/13/17 Past History Past Medical History Past Medical History: Asthma, Diabetes-Type II, High Cholesterol, Heart Disease Past Surgical History: Hysterectomy, Cholecystectomy Surgical History Other: BACK, BLADDER LIFT Review of Systems ROS Dictation Constitutional: Negative for fever,chills, and weight loss Eyes: Negative for injury, pain,redness, and discharge ENT: Negative for injury,pain or swelling Head: Positive for hematoma Cardiovascular: Negative for chest pain, palpitations, and edema Respiratory: Negative for shortness of breath, cough, and wheezing, Abdomen/GI: Negative for abdominal pain, nausea, vomiting, diarrhea, and constipation Back: Negative for injury and pain : Negative for painful urination, bleeding or discharge MS/Extremity: Positive for left shoulder, left elbow, left hip pain Negative for injury and deformity Skin: Negative for rash, and discoloration Neuro: Negative for headache, weakness, numbness, tingling, and seizure Physical Exam Physical Exam Physical Exam Dictation General: awake, alert, no acute distress Head/Face: Normocephalic, atraumatic Eyes: PERRL, EOMI, normal conjunctiva ENT: oral mucosa moist Neck: Normal range of motion Cardiovascular: RRR, normal S1/S2 Respiratory: CTAB, no respiratory distress, no rales or wheezes Skin: Warm, dry, normal turgor, no rash MS/Extremity: Pulses equal, no cyanosis, neurovascular intact, range of motion restricted by pain to the left elbow and shoulder, severe tenderness to the left elbow, hematoma noted to the left elbow Neuro: COAx4, GCS 15, no neurological deficits, cranial nerves 2-12 intact Psych: Normal behavior, mood, and affect normal LABORATORY: Laboratory Result(s) Test 08/27/24 03:46 08/27/24 05:32 White Blood Count 8.8 K/uL (4.8-10.8) Red Blood Count 3.38 MIL/uL (4.00-5.50) Hemoglobin 10.3 g/dL (12.0-16.0) Hematocrit 32.3 % (36-48) Mean Corpuscular Volume 95.6 fL (79-99) Mean Corpuscular Hemoglobin 30.5 pg (27.0-33.0) Mean Corpuscular Hemoglobin Concent 31.9 g/dL (32.0-36.0) Red Cell Distribution Width 13.9 % (11.0-15.5) Platelet Count 174 K/uL (130-400) Mean Platelet Volume 10.8 fL (7.5-10.5) Nucleated Red Blood Cells 0.0 % (0.0-0.19) Sodium Level 140 mmol/L (136-145) Potassium Level 3.7 mmol/L (3.5-5.1) Chloride Level 106 mmol/L (101-111) Carbon Dioxide Level 26 mmol/L (21-32) Blood Urea Nitrogen 14 mg/dL (7-18) Creatinine 0.7 mg/dL (0.5-1.0) Glomerular Filtration Rate Calc 85 mL/min (>90) Random Glucose 103 mg/dL (70-105) Total Calcium 8.7 mg/dL (8.5-10.1) Whole Blood Glucose 77 MG/DL (70-110) INPATIENT MEDS: Current Medications Medications Dose Ordered Sig/Yecenia Start Time Stop Time Status Last Admin Acetaminophen/ Hydrocodone Bitart 1 tab Q4H PRN 08/25/24 16:30 08/30/24 16:29 Acetaminophen/ Hydrocodone Bitart 2 tab Q4H PRN 08/25/24 16:30 08/30/24 16:29 08/26/24 21:15 Bisacodyl 10 mg DAILY PRN 08/27/24 16:30 09/26/24 16:29 Temazepam 15 mg HS PRN 08/25/24 16:30 09/24/24 16:29 Diphenhydramine HCl 25 mg Q6H PRN 08/25/24 16:30 09/24/24 16:29 Furosemide 20 mg DAILY 08/28/24 09:00 09/27/24 08:59 Levothyroxine Sodium 25 mcg DAILY 08/28/24 09:00 09/27/24 08:59 Montelukast Sodium 10 mg HS 08/28/24 09:00 09/27/24 08:59 Amlodipine Besylate 10 mg HS 08/27/24 21:00 09/26/24 20:59 Home Med Escitalopram Oxalate 10 MG AM 08/28/24 09:00 09/27/24 08:59 Gabapentin 600 mg BID 08/27/24 21:00 09/26/24 20:59 Losartan Potassium 100 mg DAILY 08/28/24 09:00 09/27/24 08:59 Sodium Chloride 1,000 ml @ 100 mls/hr Q10H 08/27/24 13:00 08/28/24 12:59 08/27/24 15:10 Polyethylene Glycol 17 gm DAILY 08/28/24 09:00 09/27/24 08:59 Bisacodyl 10 mg DAILY PRN 08/30/24 13:00 09/29/24 12:59 Ketorolac Tromethamine 15 mg Q6H PRN 08/27/24 13:00 08/30/24 16:59 Ferrous Fumarate 324 mg DAILY PRN 08/27/24 13:00 09/26/24 12:59 Calcium Carbonate 500 mg Q12H PRN 08/27/24 13:00 09/26/24 12:59 Diphenhydramine HCl 25 mg Q6H PRN 08/27/24 13:00 09/26/24 12:59 Insulin Human Regular INSULIN SLIDING SCAL... ACHS 08/27/24 16:30 09/26/24 16:29 Ondansetron HCl 4 mg Q6H PRN 08/27/24 13:00 09/26/24 12:59 Potassium Chloride 100 ml @ 100 mls/hr AD PRN 08/27/24 13:00 09/26/24 12:59 Potassium Chloride 20 meq AD PRN 08/27/24 13:00 09/26/24 12:59 Potassium Chloride 20 meq AD PRN 08/27/24 13:00 09/26/24 12:59 Cefazolin Sodium 2 gm Q8H6 08/27/24 21:00 08/27/24 22:01 PROBLEM LIST: (1) Olecranon fracture ICD Code: S52.023A - Displaced fracture of olecranon process without intraarticular extension of unspecified ulna, initialencounter for closed fracture (2) Fracture of left hip ICD Code: S72.002A - Fracture of unspecified part of neck of left femur, initial encounter for closed fracture (3) Moderate persistent asthma in adult without complication ICD Code: J45.40 - Moderate persistent asthma, uncomplicated PLAN: Resume home medication and consult orthopedics and symptomatic pain treatment Medically cleared for hip surgery no contraindications asthma stable dvt prophylaxis CHRIST MIRZA MD Aug 27, 2024 15:22
[2024-08-27] MEDS: INSULIN humuLIN R 100 UNIT/ML 3ML SQ SCH (16:20)
[2024-08-27] MEDS ORDERED: BisaCODYL 5 MG TABLET.DR PO PRN (16:30)
--- NOTE | 2024-08-27 18:10 | NUR ---
Pt's daughter refuses PT eval, states that pt is extremely lethargic, has 10/10 pain, and was just given demerol. Hold PT eval as per nursing d/t high pain levels. PT team to follow-up
--- NOTE | 2024-08-27 19:00 | NUR ---
PT STABLE- FAMILY AT BEDSIDE. HAND OFF REPORT GIVEN TO SRIKANTH SINGH
[2024-08-27] MEDS: amLODIPine 5 MG TAB PO SCH (19:10)
[2024-08-27] MEDS: ceFAZolin SODIUM 2 GM VIAL IVPB SCH (19:10)
[2024-08-27] MEDS: ketOROlac 15MG/ML VIAL (15MG/ML) IV PRN (19:11)
[2024-08-27] MEDS: GABAPENTIN 300 MG CAPSULE PO SCH (19:11)
[2024-08-28] VITALS (16 sets, daily range): BP systolic 101–187; BP diastolic 45–98; PULSE 52–88; RESP 16–20; TEMP 97.4–98.5; O2SAT 94–99
[2024-08-28 04:13] LABS: HEMATOCRIT 30.6 % (36-48); MEAN CORPUSCULAR HEMOGLOBIN 30.7 pg (27.0-33.0); MEAN CORPUSCULAR HGB CONC 31.7 g/dL (32.0-36.0); MEAN CORPUSCULAR VOLUME 96.8 fL (79-99); RED BLOOD CELL COUNT(AUTO) 3.16 MIL/uL (4.00-5.50); RED CELL DISTRIBUTION WIDTH 13.4 % (11.0-15.5); WHITE BLOOD COUNT (AUTO) 9.4 K/uL (4.8-10.8)
[2024-08-28 04:27] LABS: CREATININE 0.7 mg/dL (0.5-1.0)
--- NOTE | 2024-08-28 07:25 | PN ---
PROGRESS NOTE PROGRESS NOTE DATE OF PROGRESS NOTE: 08/28/24 SUBJECTIVE: Status post hip surgery VITAL SIGNS Vital Signs Date Time Temp Pulse Resp B/P (MAP) Pulse Ox O2 Delivery O2 Flow Rate FiO2 08/28/24 04:00 97.7 67 19 156/65 100 Nasal Cannula 3.0 08/27/24 19:24 32 PHYSICAL EXAM: 83 y/o female who presents to the ED with daughter after a fall. She reports she slipped and fell hitting her left side, and reports to hit the back of her head. Denies any LOC, denies any vomiting, abnormal behavioral, and denies taking blood thinners. The patient complaining of left shoulder, elbow, left hip pain. PMHx asthma, DM, hypercholesterolemia Allergies: Coded Allergies: iodine (Unverified Allergy, Unknown, 05/13/17) Home Meds Reported Medications [Hydrocodone/Acet] No Conflict Check, PO Q6HPRN PRN for PAIN 08/17/19 Ibuprofen (Motrin Ib) 200 Mg Tablet, 2 TAB PO Q6HPRN PRN for PAIN, TAB 08/17/19 [Proventil] No Conflict Check, 1 PUFF IH AD PRN for ASTHMA 08/17/19 Escitalopram Oxalate (Escitalopram Oxalate) 10 Mg Tablet, 10 MG PO AM, TAB 08/17/19 Vit C/E/Zn/Coppr/Lutein/Zeaxan (Preservision Areds 2 Softgel) 1 Each Capsule, 1 EACH PO BID, CAP 08/17/19 Gabapentin (Gabapentin) 600 Mg Tablet, 600 MG PO BID, TAB 08/17/19 Amlodipine Besylate (Norvasc) 10 Mg Tablet, 10 MG PO HS, TAB 08/17/19 Lactulose (Lactulose) 10 Gm/15 Ml Solution, 30 ML PO AD PRN for CONSTIPATION, ML 08/17/19 Montelukast Sodium (Singulair) 10 Mg Tablet, 10 MG PO DAILY, TAB 05/13/17 Levothyroxine Sodium (Synthroid) 25 Mcg Tablet, 25 MCG PO DAILY, TAB 05/13/17 Olmesartan Medoxomil (Benicar) 40 Mg Tablet, 40 MG PO DAILY, TAB 05/13/17 Past History Past Medical History Past Medical History: Asthma, Diabetes-Type II, High Cholesterol, Heart Disease Past Surgical History: Hysterectomy, Cholecystectomy Surgical History Other: BACK, BLADDER LIFT Review of Systems ROS Dictation Constitutional: Negative for fever,chills, and weight loss Eyes: Negative for injury, pain,redness, and discharge ENT: Negative for injury,pain or swelling Head: Positive for hematoma Cardiovascular: Negative for chest pain, palpitations, and edema Respiratory: Negative for shortness of breath, cough, and wheezing, Abdomen/GI: Negative for abdominal pain, nausea, vomiting, diarrhea, and constipation Back: Negative for injury and pain : Negative for painful urination, bleeding or discharge MS/Extremity: Positive for left shoulder, left elbow, left hip pain Negative for injury and deformity Skin: Negative for rash, and discoloration Neuro: Negative for headache, weakness, numbness, tingling, and seizure Physical Exam Physical Exam Physical Exam Dictation General: awake, alert, no acute distress Head/Face: Normocephalic, atraumatic Eyes: PERRL, EOMI, normal conjunctiva ENT: oral mucosa moist Neck: Normal range of motion Cardiovascular: RRR, normal S1/S2 Respiratory: CTAB, no respiratory distress, no rales or wheezes Skin: Warm, dry, normal turgor, no rash MS/Extremity: Pulses equal, no cyanosis, neurovascular intact, range of motion restricted by pain to the left elbow and shoulder, severe tenderness to the left elbow, hematoma noted to the left elbow Neuro: COAx4, GCS 15, no neurological deficits, cranial nerves 2-12 intact Psych: Normal behavior, mood, and affect normal LABORATORY: Laboratory Result(s) Test 08/27/24 15:29 08/27/24 16:01 08/27/24 19:44 08/28/24 03:52 Whole Blood Glucose MG/DL (70-110) 124 MG/DL (70-110) 143 MG/DL (70-110) White Blood Count 9.4 K/uL (4.8-10.8) Red Blood Count 3.16 MIL/uL (4.00-5.50) Hemoglobin 9.7 g/dL (12.0-16.0) Hematocrit 30.6 % (36-48) Mean Corpuscular Volume 96.8 fL (79-99) Mean Corpuscular Hemoglobin 30.7 pg (27.0-33.0) Mean Corpuscular Hemoglobin Concent 31.7 g/dL (32.0-36.0) Red Cell Distribution Width 13.4 % (11.0-15.5) Platelet Count 164 K/uL (130-400) Mean Platelet Volume 10.8 fL (7.5-10.5) Nucleated Red Blood Cells 0.0 % (0.0-0.19) Sodium Level 142 mmol/L (136-145) Potassium Level 4.0 mmol/L (3.5-5.1) Chloride Level 108 mmol/L (101-111) Carbon Dioxide Level 27 mmol/L (21-32) Blood Urea Nitrogen 15 mg/dL (7-18) Creatinine 0.7 mg/dL (0.5-1.0) Glomerular Filtration Rate Calc 85 mL/min (>90) Random Glucose 105 mg/dL (70-105) Total Calcium 8.4 mg/dL (8.5-10.1) Test 08/28/24 05:18 Whole Blood Glucose 108 MG/DL (70-110) INPATIENT MEDS: Current Medications Medications Dose Ordered Sig/Yecenia Start Time Stop Time Status Last Admin Acetaminophen/ Hydrocodone Bitart 1 tab Q4H PRN 08/25/24 16:30 08/30/24 16:29 Acetaminophen/ Hydrocodone Bitart 2 tab Q4H PRN 08/25/24 16:30 08/30/24 16:29 08/27/24 23:40 Bisacodyl 10 mg DAILY PRN 08/27/24 16:30 09/26/24 16:29 Temazepam 15 mg HS PRN 08/25/24 16:30 09/24/24 16:29 Diphenhydramine HCl 25 mg Q6H PRN 08/25/24 16:30 09/24/24 16:29 Furosemide 20 mg DAILY 08/28/24 09:00 09/27/24 08:59 Levothyroxine Sodium 25 mcg DAILY 08/28/24 09:00 09/27/24 08:59 Montelukast Sodium 10 mg HS 08/28/24 09:00 09/27/24 08:59 Amlodipine Besylate 10 mg HS 08/27/24 21:00 09/26/24 20:59 08/27/24 19:10 Home Med Escitalopram Oxalate 10 MG AM 08/28/24 09:00 09/27/24 08:59 Gabapentin 600 mg BID 08/27/24 21:00 09/26/24 20:59 08/27/24 19:11 Losartan Potassium 100 mg DAILY 08/28/24 09:00 09/27/24 08:59 Sodium Chloride 1,000 ml @ 100 mls/hr Q10H 08/27/24 13:00 08/28/24 12:59 08/27/24 23:40 Polyethylene Glycol 17 gm DAILY 08/28/24 09:00 09/27/24 08:59 Bisacodyl 10 mg DAILY PRN 08/30/24 13:00 09/29/24 12:59 Ketorolac Tromethamine 15 mg Q6H PRN 08/27/24 13:00 08/30/24 16:59 08/28/24 05:25 Ferrous Fumarate 324 mg DAILY PRN 08/27/24 13:00 09/26/24 12:59 Calcium Carbonate 500 mg Q12H PRN 08/27/24 13:00 09/26/24 12:59 Diphenhydramine HCl 25 mg Q6H PRN 08/27/24 13:00 09/26/24 12:59 Insulin Human Regular INSULIN SLIDING SCAL... ACHS 08/27/24 16:30 09/26/24 16:29 Ondansetron HCl 4 mg Q6H PRN 08/27/24 13:00 09/26/24 12:59 Potassium Chloride 100 ml @ 100 mls/hr AD PRN 08/27/24 13:00 09/26/24 12:59 Potassium Chloride 20 meq AD PRN 08/27/24 13:00 09/26/24 12:59 Potassium Chloride 20 meq AD PRN 08/27/24 13:00 09/26/24 12:59 PROBLEM LIST: (1) Olecranon fracture ICD Code: S52.023A - Displaced fracture of olecranon process without intraarticular extension of unspecified ulna, initialencounter for closed fracture (2) Fracture of left hip ICD Code: S72.002A - Fracture of unspecified part of neck of left femur, initia l encounter for closed fracture (3) Moderate persistent asthma in adult without complication ICD Code: J45.40 - Moderate persistent asthma, uncomplicated PLAN: Resume home medication and consult orthopedics and symptomatic pain treatment Status post hip surgery discharge planning to assisted facility asthma stable dvt prophylaxis CHRIST MIRZA MD Aug 28, 2024 07:25
--- NOTE | 2024-08-28 07:57 | PN ---
Postop day three for left olecranon fracture. Postop day one for left hemiarthroplasty secondary to left femoral neck fracture garden type 3. This morning the patient is awake alert and oriented. Daughter is at the bedside. She is in no acute distress reporting moderate pain. Vital signs have remained stable. She has been afebrile. Laboratory results reviewed. She did have a drop in hemoglobin and hematocrit as expected following surgery. She is currently asymptomatic we will address per protocol as necessary. She has a catheter in place for voiding. The plan is to remove at 2nd postop day. Operative findings discussed with the patient and daughter. Dressings intact to the left elbow and left hip. Left lower extremity with no gross edema negative Homans. Physical therapy did not have the opportunity to ambulate her yesterday and is pending further therapy this morning. Discussed with the patient and daughter that she will require a modified walker that has a adjustment for her left arm and this should be arranged by case management prior to her discharge also recommended likely by Physical therapy. Discussed with the patient that she is weight-bearing as tolerated. She is to perform incentive spirometry as instructed. Patient and daughter would like to be considered for an inpatient rehab either [facility] inpatient rehab or [facility] rehab. This will be deferred to case management. Assessment: Status post left open reduction internal fixation olecranon fracture. Status post left total hip arthroplasty. Acute postoperative blood loss anemia. Plan: Continue with Dr. Gu postoperative protocol for elbow and hip. Continue discharge planning. Remove Long tomorrow. Acute postoperative blood loss anemia addressed with the protocol as necessary Vitals/Labs Vital Signs Date Time Temp Pulse Resp B/P (MAP) Pulse Ox O2 Delivery O2 Flow Rate FiO2 08/28/24 04:00 97.7 67 19 156/65 100 Nasal Cannula 3.0 08/27/24 19:24 32 Laboratory Tests 08/28/24 03:52 Medications Current Medications Morphine Sulfate 2 mg ONCE ONCE IM Last administered on 08/24/24at 18:38; Start 08/24/24 at 18:00; Stop 08/24/24 at 18:01; Status DC Morphine Sulfate 2 mg ONCE ONCE IVP Last administered on 08/24/24at 19:40; Start 08/24/24 at 19:30; Stop 08/24/24 at 19:31; Status DC Sodium Chloride 1,000 ml @ 100 mls/hr Q10H IV Last administered on 08/24/24at 20:48; Start 08/24/24 at 20:30; Stop 08/27/24 at 13:24; Status DC Hydromorphone HCl 0.5 mg Q3H ONCE IVP Last administered on 08/24/24at 22:41; Start 08/24/24 at 20:30; Stop 08/24/24 at 20:31; Status DC Hydromorphone HCl 0.5 mg Q3H3 PRN IVP Last administered on 08/25/24at 10:07; Start 08/25/24 at 06:00; Stop 08/25/24 at 16:38; Status DC Cefazolin Sodium 2 gm ONCALL ONCE IVPB Last administered on 08/25/24at 13:30; Start 08/25/24 at 13:00; Stop 08/25/24 at 13:01; Status DC Cefazolin Sodium 2 gm STK-MED ONCE .ROUTE; Start 08/25/24 at 10:57; Stop 08/25/24 at 10:57; Status DC Lidocaine HCl 100 mg STK-MED ONCE .ROUTE; Start 08/25/24 at 11:13; Stop 08/25/24 at 11:14; Status DC Ondansetron HCl 4 mg STK-MED ONCE .ROUTE; Start 08/25/24 at 11:13; Stop 08/25/24 at 11:14; Status DC Succinylcholine Chloride 200 mg STK-MED ONCE .ROUTE; Start 08/25/24 at 11:14; Stop 08/25/24 at 11:14; Status DC Dexamethasone Sodium Phosphate 10 mg STK-MED ONCE .ROUTE; Start 08/25/24 at 11:14; Stop 08/25/24 at 11:14; Status DC Glycopyrrolate 1 mg STK-MED ONCE .ROUTE; Start 08/25/24 at 11:14; Stop 08/25/24 at 11:14; Status DC Propofol 200 mg STK-MED ONCE IV; Start 08/25/24 at 11:14; Stop 08/25/24 at 11:14; Status DC Neostigmine Methylsulfate 10 mg STK-MED ONCE IV; Start 08/25/24 at 11:14; Stop 08/25/24 at 11:14; Status DC Rocuronium Arnot 50 mg STK-MED ONCE .ROUTE; Start 08/25/24 at 11:14; Stop 08/25/24 at 11:14; Status DC Fentanyl Citrate 100 mcg STK-MED ONCE .ROUTE; Start 08/25/24 at 11:14; Stop 08/25/24 at 11:15; Status DC Midazolam HCl 2 mg STK-MED ONCE .ROUTE; Start 08/25/24 at 11:15; Stop 08/25/24 at 11:15; Status DC Ropivacaine 150 mg STK-MED ONCE .ROUTE; Start 08/25/24 at 11:17; Stop 08/25/24 at 11:17; Status DC Albumin Human 250 ml @ As Directed STK-MED ONCE IV; Start 08/25/24 at 11:19; Stop 08/25/24 at 11:19; Status DC Cefazolin Sodium 1 gm STK-MED ONCE .ROUTE; Start 08/25/24 at 12:59; Stop 08/25/24 at 13:04; Status DC Cefazolin Sodium 1 gm STK-MED ONCE IRRIG Last administered on 08/25/24at 13:56; Start 08/25/24 at 13:56; Stop 08/25/24 at 13:57; Status DC Fentanyl Citrate 100 mcg STK-MED ONCE .ROUTE; Start 08/25/24 at 14:10; Stop 08/25/24 at 14:10; Status DC Labetalol HCl 20 mg STK-MED ONCE IV Last administered on 08/25/24at 17:18; Start 08/25/24 at 16:21; Stop 08/25/24 at 16:21; Status DC Sodium Chloride 1,000 ml @ 100 mls/hr Q10H IV Last administered on 08/25/24at 18:40; Start 08/25/24 at 16:30; Stop 08/26/24 at 16:29; Status DC Acetaminophen/ Hydrocodone Bitart 1 tab Q4H PRN PO; Start 08/25/24 at 16:30; Stop 08/30/24 at 16:29 Acetaminophen/ Hydrocodone Bitart 2 tab Q4H PRN PO Last administered on 08/27/24at 23:40; Start 08/25/24 at 16:30; Stop 08/30/24 at 16:29 Enoxaparin Sodium 40 mg ONCE ONCE SQ Last administered on 08/26/24at 10:06; Start 08/26/24 at 09:00; Stop 08/26/24 at 09:01; Status DC Polyethylene Glycol 17 gm DAILY PO Last administered on 08/26/24at 10:06; Start 08/26/24 at 09:00; Stop 08/27/24 at 13:18; Status DC Bisacodyl 10 mg DAILY PRN PO; Start 08/27/24 at 16:30; Stop 09/26/24 at 16:29 Ketorolac Tromethamine 15 mg Q6H PRN IV Last administered on 08/27/24at 07:12; Start 08/25/24 at 17:00; Stop 08/27/24 at 13:23; Status DC Ferrous Fumarate 324 mg DAILY PRN PO; Start 08/25/24 at 16:30; Stop 08/27/24 at 13:18; Status DC Temazepam 15 mg HS PRN PO; Start 08/25/24 at 16:30; Stop 09/24/24 at 16:29 Calcium Carbonate 500 mg Q12H PRN PO; Start 08/25/24 at 16:30; Stop 08/27/24 at 13:18; Status DC Diphenhydramine HCl 25 mg Q6H PRN PO; Start 08/25/24 at 16:30; Stop 09/24/24 at 16:29 Diphenhydramine HCl 25 mg Q6H PRN IVP; Start 08/25/24 at 16:30; Stop 08/27/24 at 13:18; Status DC Insulin Human Regular INSULIN SLIDING SCAL... ACHS SQ; Start 08/25/24 at 16:30; Stop 08/27/24 at 13:18; Status DC Cefazolin Sodium 2 gm Q8H IVP Last administered on 08/26/24at 04:58; Start 08/25/24 at 21:00; Stop 08/26/24 at 05:01; Status DC Potassium Chloride 100 ml @ 100 mls/hr AD PRN IV; Start 08/25/24 at 16:30; Stop 08/27/24 at 13:17; Status DC Potassium Chloride 20 meq AD PRN PO; Start 08/25/24 at 16:30; Stop 08/27/24 at 13:17; Status DC Potassium Chloride 20 meq AD PRN PO; Start 08/25/24 at 16:30; Stop 08/27/24 at 13:17; Status DC Meperidine HCl 25 mg STK-MED ONCE .ROUTE Last administered on 08/25/24at 17:18; Start 08/25/24 at 17:05; Stop 08/25/24 at 17:10; Status DC Lactulose 20 gm TID PO Last administered on 08/26/24at 14:39; Start 08/26/24 at 09:00; Stop 08/26/24 at 20:09; Status DC Cefazolin Sodium 2 gm ONCALL PRN IVPB; Start 08/27/24 at 12:00; Stop 08/27/24 at 13:18; Status DC Lidocaine HCl 100 mg STK-MED ONCE .ROUTE; Start 08/27/24 at 09:30; Stop 08/27/24 at 09:30; Status DC Succinylcholine Chloride 200 mg STK-MED ONCE .ROUTE; Start 08/27/24 at 09:31; Stop 08/27/24 at 09:31; Status DC Dexamethasone Sodium Phosphate 10 mg STK-MED ONCE .ROUTE; Start 08/27/24 at 09:31; Stop 08/27/24 at 09:31; Status DC Glycopyrrolate 1 mg STK-MED ONCE .ROUTE; Start 08/27/24 at 09:31; Stop 08/27/24 at 09:32; Status DC Propofol 200 mg STK-MED ONCE IV; Start 08/27/24 at 09:32; Stop 08/27/24 at 09:32; Status DC Neostigmine Methylsulfate 10 mg STK-MED ONCE IV; Start 08/27/24 at 09:32; Stop 08/27/24 at 09:32; Status DC Ondansetron HCl 4 mg STK-MED ONCE .ROUTE; Start 08/27/24 at 09:32; Stop 08/27/24 at 09:32; Status DC Rocuronium Arnot 50 mg STK-MED ONCE .ROUTE; Start 08/27/24 at 09:32; Stop 08/27/24 at 09:32; Status DC Fentanyl Citrate 100 mcg STK-MED ONCE .ROUTE; Start 08/27/24 at 09:33; Stop 08/27/24 at 09:34; Status DC Cefazolin Sodium 2 gm STK-MED ONCE .ROUTE Last administered on 08/27/24at 11:03; Start 08/27/24 at 09:34; Stop 08/27/24 at 09:34; Status DC Midazolam HCl 2 mg STK-MED ONCE .ROUTE; Start 08/27/24 at 09:34; Stop 08/27/24 at 09:34; Status DC Albumin Human 500 ml @ As Directed STK-MED ONCE IV; Start 08/27/24 at 09:38; Stop 08/27/24 at 09:38; Status DC Cefazolin Sodium 1 gm STK-MED ONCE .ROUTE Last administered on 08/27/24at 11:19; Start 08/27/24 at 11:16; Stop 08/27/24 at 11:16; Status DC Tranexamic Acid 1,000 mg STK-MED ONCE .ROUTE Last administered on 08/27/24at 11:27; Start 08/27/24 at 11:21; Stop 08/27/24 at 11:22; Status DC Fentanyl Citrate 100 mcg STK-MED ONCE .ROUTE; Start 08/27/24 at 11:27; Stop 08/27/24 at 11:28; Status DC Furosemide 20 mg DAILY PO; Start 08/28/24 at 09:00; Stop 09/27/24 at 08:59 Levothyroxine Sodium 25 mcg DAILY PO; Start 08/28/24 at 09:00; Stop 09/27/24 at 08:59 Montelukast Sodium 10 mg HS PO; Start 08/28/24 at 09:00; Stop 09/27/24 at 08:59 Amlodipine Besylate 10 mg HS PO Last administered on 08/27/24at 19:10; Start 08/27/24 at 21:00; Stop 09/26/24 at 20:59 Home Med Escitalopram Oxalate 10 MG AM PO; Start 08/28/24 at 09:00; Stop 09/27/24 at 08:59 Gabapentin 600 mg BID PO Last administered on 08/27/24at 19:11; Start 08/27/24 at 21:00; Stop 09/26/24 at 20:59 Losartan Potassium 100 mg DAILY PO; Start 08/28/24 at 09:00; Stop 09/27/24 at 08:59 Ondansetron HCl 4 mg STK-MED ONCE .ROUTE; Start 08/27/24 at 12:00; Stop 08/27/24 at 12:00; Status DC Sodium Chloride 1,000 ml @ 100 mls/hr Q10H IV Last administered on 08/27/24at 23:40; Start 08/27/24 at 13:00; Stop 08/28/24 at 12:59 Polyethylene Glycol 17 gm DAILY PO; Start 08/28/24 at 09:00; Stop 09/27/24 at 08:59 Bisacodyl 10 mg DAILY PRN RC; Start 08/30/24 at 13:00; Stop 09/29/24 at 12:59 Ketorolac Tromethamine 15 mg Q6H PRN IV Last administered on 08/28/24at 05:25; Start 08/27/24 at 13:00; Stop 08/30/24 at 16:59 Ferrous Fumarate 324 mg DAILY PRN PO; Start 08/27/24 at 13:00; Stop 09/26/24 at 12:59 Calcium Carbonate 500 mg Q12H PRN PO; Start 08/27/24 at 13:00; Stop 09/26/24 at 12:59 Diphenhydramine HCl 25 mg Q6H PRN IVP; Start 08/27/24 at 13:00; Stop 09/26/24 at 12:59 Insulin Human Regular INSULIN SLIDING SCAL... ACHS SQ; Start 08/27/24 at 16:30; Stop 09/26/24 at 16:29 Ondansetron HCl 4 mg Q6H PRN IVP; Start 08/27/24 at 13:00; Stop 09/26/24 at 12:59 Cefazolin Sodium 2 gm Q8H IVPB; Start 08/27/24 at 13:30; Stop 08/27/24 at 15:05; Status DC Potassium Chloride 100 ml @ 100 mls/hr AD PRN IV; Start 08/27/24 at 13:00; Stop 09/26/24 at 12:59 Potassium Chloride 20 meq AD PRN PO; Start 08/27/24 at 13:00; Stop 09/26/24 at 12:59 Potassium Chloride 20 meq AD PRN PO; Start 08/27/24 at 13:00; Stop 09/26/24 at 12:59 Meperidine HCl 25 mg STK-MED ONCE .ROUTE Last administered on 08/27/24at 13:40; Start 08/27/24 at 13:35; Stop 08/27/24 at 13:35; Status DC Meperidine HCl 25 mg STK-MED ONCE .ROUTE Last administered on 08/27/24at 13:51; Start 08/27/24 at 13:45; Stop 08/27/24 at 13:46; Status DC Cefazolin Sodium 2 gm Q8H6 IVPB Last administered on 08/27/24at 19:10; Start 08/27/24 at 21:00; Stop 08/27/24 at 22:01; Status DC FRANKLIN CHACON NP Aug 28, 2024 07:57
[2024-08-28] MEDS ORDERED: levoTHYROxine 25 MCG TABLET PO SCH (09:00)
[2024-08-28] MEDS: Escitalopram Oxalate 10 MG PO SCH (09:00)
[2024-08-28] MEDS: HYDROcodone/APAP 5/325 1 TAB TABLET PO PRN (09:17)
[2024-08-28] MEDS: furoSEMIDE 20 MG TABLET PO SCH (09:23)
[2024-08-28] MEDS: polyETHYLene GLYCol 3350 17 GM POWD.PACK PO SCH (09:23)
[2024-08-28] MEDS: LoSARTan 100 MG TABLET PO SCH (09:23)
[2024-08-28] MEDS: monteLUKAST sodIUM 10 MG TAB PO SCH (09:27)
--- NOTE | 2024-08-28 12:33 | NUR ---
CM Note: [facility] pending acceptance CM me with pt and daughter in room this morning, discussed MD recommendations for rehab and DME for standard walker w/left forearm platform. Pt and daughter made aware DME will be given a heads up but will not deliver equipment until after rehab. Pt and daughter requesting #1 [facility], #2 [facility], #3 [facility] consent signed ALANA. CM sent order, clinicals to [place] [facility] and [facility] w/[facility] via secure fax and email, confirmation received. Pt pending eval notes to be entered at this time, CM to sent via secure email to [facility] once available. Pending rep response. Pt pending acceptance. MOT semi-filled pending to complete once pt has acceptance. EMS arranged and faxed for today in case, primary nurse to call [facility] once pt ready to DC. CM sent order, clinicals to [facility] via secure fax and email, confirmation received. Pending rep response. Pt pending approval and delivery once pt close to DC from [facility]. Primary nurse Wilma made aware. Dr Foster updated. CM to continue to follow up. Addendum: 08/28/24 at 1240 by BENJAMÍN KING LVN CM Amended: Links added.
--- NOTE | 2024-08-28 13:45 | NUR ---
DESIREE NOTE: [facility] PENDING ACCEPTANCE CM SPOKE TO [facility]BY W/IR, THEY ARE AT FULL CAPACITY, NEXT AVAILABLE BED MAYBE SATURDAY/SATURDAY. CANCELLED REFERRAL. CM SPOKE TO PT AND DAUGHTER MADE AWARE OF ABOVE, AGREEABLE TO FOLLOW THROUGH [facility]. CM FORWARDED PACKET, UPDATED ORDER, PASRR, PT TO [facility] VIA SECURE EMAIL. CM SPOKE TO KIMMY, MADE AWARE OF NEW REFERRAL, WILL COME EVALUATE PT. EMS ARRANGED AND FAXED FOR TODAY IN CASE PT DC, PRIMARY NURSE TO CALL [facility] ONCE PT READY TO DC. PT PENDING ACCEPTANCE. PRIMARY NURSE GHANSHYAM MADE AWARE. DR MIRZA UPDATED. CM TO CONTINUE TO FOLLOW UP. Addendum: 08/28/24 at 1349 by BENJAMÍN KING LVN CM Amended: Links added.
--- NOTE | 2024-08-28 14:51 | NUR ---
CM NOTE: [facility] ACCEPTANCE CM SPOKE TO KIMMY Rogers/TISHA OROZCO, PT HAS ACCEPTANCE. EMS FILLED OUT AND FAXED FOR TODAY IN CASE PT ABLE TO DC TODAY, PRIMARY NURSE TO CALL [facility] ONCE PT READY TO DC. PRIMARY NURSE GHANSHYAM MADE AWARE. DR MIRZA UPDATED. CM TO CONTINUE TO FOLLOW UP. Addendum: 08/28/24 at 1453 by BENJAMÍN KING LVN Amended: Links added.
[2024-08-29] VITALS: BP 121/53; PULSE 84; RESP 18; TEMP 98.1
[2024-08-29 04:00] VITALS: BP 135/57; PULSE 79; RESP 18; TEMP 99.2
[2024-08-29] MEDS: levoTHYROxine 25 MCG TABLET PO SCH (05:39)
[2024-08-29 07:10] VITALS: PULSE 77; RESP 20; O2SAT 94
[2024-08-29 08:00] VITALS: BP 122/58; PULSE 71; RESP 18; TEMP 97.9; O2SAT 95
[2024-08-29] MEDS ORDERED: HYDR-4060 PO (10:26)
[2024-08-29] MEDS ORDERED: ENOX40DI8 SQ (10:26)
[2024-08-29] MEDS: ENOXAPARIN SODIUM 40 MG/0.4 ML SYRINGE SQ SCH (10:50)
[2024-08-29 12:00] VITALS: BP 144/64; PULSE 98; RESP 17; TEMP 98.4
--- NOTE | 2024-08-29 12:27 | NUR ---
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
--- NOTE | 2024-08-29 13:26 | NUR ---
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
[2024-08-30] MEDS ORDERED: BisaCODYL 10 MG SUPP.RECT RC PRN (13:00)
--- NOTE | 2024-08-30 20:46 | DS ---
Discharge Summary DIAGNOSE(S): [Olecranon fracture and hip fracture] HOSPITAL COURSE SUMMARY: [Status post left open reduction internal fixation olecranon fracture. Status post left total hip arthroplasty. Acute postoperative blood loss anemia. ] BAR TURNER(S): [Orthopedics] PROCEDURE(S)/TREATMENT(S): [As above] PROBLEM(S): [] FOLLOW-UP TEST(S): [None] DISCHARGE INSTRUCTIONS: [Discharge to residential facility] Home Meds Active Scripts Enoxaparin Sodium (Lovenox) 40 Mg/0.4 Ml Disp.syrin, 40 MG SQ DAILY for dvt prophylaxis, #15 DIS.SYR 0 Refills Prov:DONTE MARRERO MD 08/29/24 Hydrocodone/Acetaminophen (Hydrocodon-Acetaminophen 5-325) 5 Mg-325 Mg Tablet, 1 EACH PO Q6HPRN PRN for acute post-op pain, #28 TAB 0 Refills Prov:DONTE MARRERO MD 08/29/24 Reported Medications Furosemide (Lasix 20Mg Tab) 20 Mg Tablet, 1 TAB PO DAILY for 30 Days, #30 TAB 0 Refills 08/27/24 Escitalopram Oxalate (Escitalopram Oxalate) 10 Mg Tablet, 10 MG PO AM, TAB 08/17/19 Gabapentin (Gabapentin) 600 Mg Tablet, 600 MG PO BID, TAB 08/17/19 Amlodipine Besylate (Norvasc) 10 Mg Tablet, 10 MG PO HS, TAB 08/17/19 Montelukast Sodium (Singulair) 10 Mg Tablet, 10 MG PO DAILY, TAB 05/13/17 Levothyroxine Sodium (Synthroid) 25 Mcg Tablet, 25 MCG PO DAILY, TAB 05/13/17 Olmesartan Medoxomil (Benicar) 40 Mg Tablet, 40 MG PO DAILY, TAB 05/13/17 Discontinued Reported Medications Gabapentin (Neurontin) 300 Mg Capsule, 5 CAP PO DAILY for 30 Days, #90 CAP 0 Refills 08/27/24 [Hydrocodone/Acet] No Conflict Check, PO Q6HPRN PRN for PAIN 08/17/19 Ibuprofen (Motrin Ib) 200 Mg Tablet, 2 TAB PO Q6HPRN PRN for PAIN, TAB 08/17/19 [Proventil] No Conflict Check, 1 PUFF IH AD PRN for ASTHMA 08/17/19 Vit C/E/Zn/Coppr/Lutein/Zeaxan (Preservision Areds 2 Softgel) 1 Each Capsule, 1 EACH PO BID, CAP 08/17/19 Lactulose (Lactulose) 10 Gm/15 Ml Solution, 30 ML PO AD PRN for CONSTIPATION, ML 08/17/19 CHRIST MIRZA MD Aug 30, 2024 20:46
== END 2024-08-29 13:26 | DRG 469 ==
LOC: EDH 15:52 → EDHIP 20:03 → 4CH 08-25 00:37
PROVIDERS: ADMIT Internal Medicine; ATTEND Internal Medicine
PROC: 0PSL04Z Reposition Left Ulna with Internal Fixation Device, Open Approach (ICD-10-PCS; 2024-08-25)
PROC: 5A09357 Assistance with Respiratory Ventilation, Less than 24 Consecutive Hours, Continuous Positive Airway Pressure (ICD-10-PCS; 2024-08-25)
PROC: 0SRS0J9 Replacement of Left Hip Joint, Femoral Surface with Synthetic Substitute, Cemented, Open Approach (ICD-10-PCS; principal; 2024-08-27 10:25)
DX: S52.022A Displaced fracture of olecranon process without intraarticular extension of left ulna, initial encounter for closed fracture (principal); S72.002A Fracture of unspecified part of neck of left femur, initial encounter for closed fracture; D62 Acute posthemorrhagic anemia; M19.012 Primary osteoarthritis, left shoulder; J45.40 Moderate persistent asthma, uncomplicated; E11.9 Type 2 diabetes mellitus without complications; E78.00 Pure hypercholesterolemia, unspecified; J32.4 Chronic pansinusitis; Z90.710 Acquired absence of both cervix and uterus; Z79.899 Other long term (current) drug therapy; Z90.49 Acquired absence of other specified parts of digestive tract; W01.0XXA Fall on same level from slipping, tripping and stumbling without subsequent striking against object, initial encounter; Y93.89 Activity, other specified; Y92.89 Other specified places as the place of occurrence of the external cause; Y99.8 Other external cause status
CPT/HCPCS: 36415; 70450; 73030; 73070; 73080; 73090; 73503; 73700; 80048; 80053; 82948; 85025; 85027; 85610; 85730; 86850; 86900; 86901; 93005; 94660; 94664; 96372; 96374; 96375; 99291; C1776; G0378; J0330; J0690; J1100; J1171; J1650; J1885; J2003; J2175; J2250; J2270; J2405; J2704; J2710; J2795; J3010; J3490; J7030; P9045; A4215; A4216; A4222; A4223; A4600; A4649; A4930; A6223; A6251; A9272; C1713